=== PATIENT | female | born 1985 | race Caucasian/White ===

== ENCOUNTER 2021-03-26 08:38 | Inpatient (IN) ==
[2021-03-26] MEDS ORDERED: IOPAMIDOL 100 ML BOTTLE IV ONE (08:39)
[2021-03-26] MEDS ORDERED: LACTATED RINGERS 1,000 ML IV ONE ×2 (09:20→10:53)
[2021-03-26] MEDS ORDERED: KETOROLAC 30 MG/ML VIAL IV ONE (09:20)
[2021-03-26] MEDS ORDERED: ONDANSETRON 4 MG/2 ML VIAL IV ONE ×2 (09:20→10:45)
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
[2021-03-26] MEDS ORDERED: morphine 4 MG/ML VIAL IV ONE ×3 (09:57→12:35)
[2021-03-26 10:13] LABS: Basophils # (Auto) 0.07 K/mcL (0.00-0.20); Basophils % (Auto) 0.6 % (0.0-2.0); Eosinophils # (Auto) 0.49 K/mcL (0.00-0.70); Eosinophils % (Auto) 4.3 % (0.0-7.0); Hematocrit 45.2 % (36.0-48.0); Hemoglobin 16.2 g/dL (12.0-15.0); Lymphocytes # (Auto) 3.19 K/mcL (1.50-4.80); Mean Cell Volume 99.3 fL (80.0-100.0); Mean Corpuscular HGB Conc 35.8 g/dL (31.0-36.0); Mean Platelet Volume 9.9 fL (7.4-10.4); Monocytes # (Auto) 0.86 K/mcL (0.10-0.90); Monocytes % (Auto) 7.6 % (1.0-12.0); Neutrophils % (Auto) 59.5 % (38.0-78.0); Platelet Count 267 K/mcL (140-440); RBC 4.55 M/mcL (4.00-5.20); Red Cell Distribution Width 12.6 % (11.5-14.5); WBC 11.4 K/mcL (4.5-11.0)
[2021-03-26 10:35] LABS: ALT/SGPT 98 U/L (<40); AST/SGOT 126 U/L (<32); Albumin 4.1 gm/dL (3.2-5.2); Albumin/Globulin Ratio 1.3 (1.0-2.3); Alkaline Phosphatase 157 U/L (39-117); Bilirubin,Total 0.5 mg/dL (0.1-1.0); Blood Urea Nitrogen 4 mg/dL (6-20); Calcium 8.7 mg/dL (8.6-10.4); Carbon Dioxide 20 mmol/L (22-30); Chloride 94 mmol/L (96-108); Globulin 3.1 gm/dL (2.2-3.7); Glomerular Filtration Rate 126; Glucose 167 mg/dL (70-105)
[2021-03-26] MEDS ORDERED: ONDANSETRON 4 MG/2 ML VIAL ONE (10:51)
[2021-03-26 11:20] LABS: Triglycerides 233 mg/dL (<150)
[2021-03-26] MEDS ORDERED: morphine 10 MG/ML VIAL IV ONE (11:26)
--- NOTE | 2021-03-26 11:45 | Ultrasound Report ---
INDICATION: cholecystitis TECHNIQUE: Grayscale and color flow Doppler spectral imaging COMPARISON: None. FINDINGS: Gallbladder:Negative. No cholelithiasis. No gallbladder wall thickening or pericholecystic fluid Common bile duct:No intra or extrahepatic bile duct dilatation.. Common bile duct measuresor millimeters Liver:Liver is enlarged and echogenic. Liver attenuates sound relative to the right kidney consistent with hepatic steatosis. No focal hepatic mass.. Liver [id number] cm Portal vein:Normal hepatopedal portal venous flow Pancreas:Pancreas appears echogenic. No detectable mass Right kidney:No solid or cystic mass. No hydronephrosis. Right kidney [id number] x 4.5 x 4.1 cm IMPRESSION: 1. Negative gallbladder 2. Findings consistent with hepatic steatosis Interpreted and Authenticated by: Emil Gomes 03/26/21
--- NOTE | 2021-03-26 12:53 | Cat Scan Report ---
INDICATION: pancreatitis COMPARISON: None. TECHNIQUE: Axial images were obtained through the abdomen and pelvis. Sagittally and coronally reformatted images. 80 mL Isovue 370 injected intravenously. Oral contrast material was given FINDINGS: Lung bases:Negative. No pulmonary parenchymal nodule. No pleural fluid or pericardial fluid Liver:Markedly low density liver consistent with hepatic steatosis. There is no focal mass. Liver is mildly enlarged and measures 20 cm in craniocaudal dimension. Gallbladder, bilary:No calcified gallstones. No gallbladder wall thickening. No dilated intra or extrahepatic bile ducts. Spleen:No splenomegaly. Normal enhancement of splenic and portal veins. Pancreas:Pancreas is somewhat enlarged and edematous. There is peripancreatic inflammatory change and fluid. Appearance is consistent with acute interstitial edematous pancreatitis. Pancreas is well perfused without evidence for pancreatic necrosis. No pancreatic abscess. There is peripancreatic inflammatory change and fluid. No contained fluid. No pseudocyst. Fluid dissection down the anterior pararenal space bilaterally. There is free fluid within the pelvis. Adrenal glands:Negative Kidneys, ureters, bladder:No solid renal mass. No hydronephrosis. No obstructing calculi. There is no hydroureter. No ureteral stone No bladder calculi or detectable mass Gastrointestinal: Colon appears diffusely abnormal. There is mucosal enhancement and mild wall thickening. There is minimal pericolonic infiltration of fat. There is also submucosal fat. Findings suggest possible inflammatory bowel disease. Infectious colitis is possible. There is no colonic mass. No diverticulitis. Small bowel is negative. No mechanical small bowel obstruction Stomach and duodenum are unremarkable Appendix: The appendix is not visualized Vascular:Negative abdominal aorta. Superior mesenteric artery and celiac trunk are normal. Normal opacification of the inferior mesenteric artery Lymphatic:No retroperitoneal or mesenteric adenopathy Mesentery, peritoneum: There is free fluid within the pelvis. No intra-abdominal abscess. No pneumoperitoneum Reproductive:Uterus is not visualized consistent with hysterectomy. No adnexal mass Musculoskeletal:No lumbar compression fractures. Sacrum and pelvis are negative. No hip fracture. No abdominal wall or inguinal hernia IMPRESSION: 1. Acute interstitial edematous pancreatitis. No evidence of pancreatic abscess or necrosis 2. Peripancreatic inflammatory change and fluid. No contained fluid no pseudocyst 3. Free fluid within the pelvis 4. : Appears abnormal consistent with colitis. This may be infectious or related to inflammatory bowel disease. The exam was performed using radiation dose optimization techniques including, but not limited to, automated exposure control, adjustment of the mA and/or kV according to patient size and use of iterative reconstruction technique. Interpreted and Authenticated by: Emil Gomes 03/26/21
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
[2021-03-26] MEDS ORDERED: MELATONIN 3 MG TABLET PO PRN (14:07)
[2021-03-26] MEDS ORDERED: 0.9 % SODIUM CHLORIDE 1,000 ML IV SCH (14:07)
[2021-03-26] MEDS ORDERED: MAGNESIUM SULFATE 2 GM/50 ML BAG IV PRN (14:07)
[2021-03-26] MEDS ORDERED: ACETAMINOPHEN 325 MG TABLET PO PRN (14:07)
[2021-03-26] MEDS ORDERED: BISACODYL 10 MG SUPP.RECT PR PRN (14:07)
[2021-03-26] MEDS ORDERED: POLYETHYLENE GLYCOL 3350 17 GM PACKET PO PRN (14:07)
[2021-03-26] MEDS ORDERED: guaiFENesin/CODEINE 10 ML UDC PO PRN (14:07)
[2021-03-26] MEDS ORDERED: POTASSIUM CHLORIDE 40 MEQ in DEXTROSE 5% IN WATER 500 ML IV PRN (14:07)
[2021-03-26] MEDS ORDERED: ONDANSETRON 4 MG ODT TABLET SL PRN (14:07)
[2021-03-26] MEDS ORDERED: ACETAMINOPHEN 650 MG/65 ML BAG IV PRN (14:07)
[2021-03-26] MEDS: 0.9 % SODIUM CHLORIDE 10 ML SYRINGE IV SCH ×2 (14:17→21:16)
[2021-03-26] MEDS: HYDROmorphone 0.5 MG/0.5 ML SYRINGE IV PRN ×8 (14:18→22:50)
[2021-03-26] MEDS: ONDANSETRON 4 MG/2 ML VIAL IV PRN ×2 (14:39→19:14)
[2021-03-26] MEDS ORDERED: HYDROmorphone 1 MG/ML SYRINGE IV ONE (15:41)
[2021-03-26] MEDS: 0.9 % SODIUM CHLORIDE 1,000 ML IV SCH ×2 (16:14→21:27)
[2021-03-26] MEDS: PROMETHAZINE 25 MG/ML VIAL IV PRN (17:16)
[2021-03-26] MEDS ORDERED: HYDROmorphone PCA 30 MG/30 ML PCA.VIAL IV PRN (17:25)
[2021-03-26] MEDS ORDERED: HYDROmorphone 0.5 MG/0.5 ML SYRINGE ONE (19:10)
[2021-03-26] MEDS ORDERED: SENNOSIDES/DOCUSATE SODIUM 1 TAB TABLET PO SCH (21:00)
[2021-03-26] MEDS: HEPARIN 5,000 UNIT/ML VIAL SQ SCH (21:15)
[2021-03-26] MEDS: DOCUSATE SODIUM 100 MG CAPSULE PO SCH (21:17)
[2021-03-26] MEDS: LORazepam 2 MG/ML VIAL IV PRN (21:51)
[2021-03-27] MEDS: PROMETHAZINE 25 MG/ML VIAL IV PRN (00:32)
[2021-03-27] MEDS: HYDROmorphone 0.5 MG/0.5 ML SYRINGE IV PRN ×6 (00:33→06:34)
[2021-03-27] MEDS: 0.9 % SODIUM CHLORIDE 1,000 ML IV SCH ×6 (02:37→18:57)
[2021-03-27] MEDS: ONDANSETRON 4 MG/2 ML VIAL IV PRN (04:04)
[2021-03-27] MEDS: 0.9 % SODIUM CHLORIDE 10 ML SYRINGE IV SCH ×3 (04:05→23:33)
[2021-03-27] MEDS: LORazepam 2 MG/ML VIAL IV PRN (06:35)
[2021-03-27 08:22] LABS: Basophils # (Auto) 0.05 K/mcL (0.00-0.20); Basophils % (Auto) 0.3 % (0.0-2.0); Eosinophils # (Auto) 0.05 K/mcL (0.00-0.70); Eosinophils % (Auto) 0.3 % (0.0-7.0); Hematocrit 49.7 % (36.0-48.0); Hemoglobin 16.4 g/dL (12.0-15.0); Lymphocytes # (Auto) 1.33 K/mcL (1.50-4.80); Lymphocytes % (Auto) 6.7 % (15.0-49.0); Mean Cell Volume 105.3 fL (80.0-100.0); Monocytes # (Auto) 0.87 K/mcL (0.10-0.90); Monocytes % (Auto) 4.4 % (1.0-12.0); Neutrophils % (Auto) 88.3 % (38.0-78.0); Platelet Count 211 K/mcL (140-440); RBC 4.72 M/mcL (4.00-5.20); Red Cell Distribution Width 13.4 % (11.5-14.5); WBC 19.9 K/mcL (4.5-11.0)
[2021-03-27 08:24] LABS: ALT/SGPT 62 U/L (<40); AST/SGOT 67 U/L (<32); Albumin 3.2 gm/dL (3.2-5.2); Albumin/Globulin Ratio 1.2 (1.0-2.3); Alkaline Phosphatase 117 U/L (39-117); Bilirubin,Direct 0.5 mg/dL (<0.3); Bilirubin,Total 0.8 mg/dL (0.1-1.0); Blood Urea Nitrogen 7 mg/dL (6-20); Calcium 7.3 mg/dL (8.6-10.4); Carbon Dioxide 22 mmol/L (22-30); Chloride 107 mmol/L (96-108); Globulin 2.6 gm/dL (2.2-3.7); Glomerular Filtration Rate 118; Glucose 103 mg/dL (70-105); Lactate Dehydrogenase 257 U/L (135-225); Triglycerides 145 mg/dL (<150); Uric Acid 4.4 mg/dL (2.5-8.0)
[2021-03-27] MEDS: 0.9 % SODIUM CHLORIDE 250 ML IV SCH ×2 (08:45→23:32)
[2021-03-27] MEDS ORDERED: ACETAMINOPHEN 325 MG TABLET PO PRN (09:21)
[2021-03-27] MEDS ORDERED: PROMETHAZINE 25 MG/ML VIAL IV PRN (09:21)
[2021-03-27] MEDS ORDERED: guaiFENesin/CODEINE 10 ML UDC PO PRN (09:21)
[2021-03-27] MEDS ORDERED: LORazepam 2 MG/ML VIAL IV PRN (09:21)
[2021-03-27] MEDS ORDERED: BISACODYL 10 MG SUPP.RECT PR PRN (09:21)
[2021-03-27] MEDS ORDERED: HYDROmorphone PCA 30 MG/30 ML PCA.VIAL IV PRN (09:21)
[2021-03-27] MEDS ORDERED: MELATONIN 3 MG TABLET PO PRN (09:21)
[2021-03-27] MEDS ORDERED: POLYETHYLENE GLYCOL 3350 17 GM PACKET PO PRN (09:21)
[2021-03-27] MEDS ORDERED: ONDANSETRON 4 MG ODT TABLET SL PRN (09:21)
[2021-03-27] MEDS ORDERED: HYDROmorphone 0.5 MG/0.5 ML SYRINGE IV PRN (09:21)
[2021-03-27] MEDS ORDERED: ACETAMINOPHEN 650 MG/65 ML BAG IV PRN (09:21)
[2021-03-27] MEDS: MAGNESIUM SULFATE 2 GM/50 ML BAG IV PRN (09:59)
[2021-03-27] MEDS: HEPARIN 5,000 UNIT/ML VIAL SQ SCH ×3 (10:17→21:13)
--- NOTE | 2021-03-27 10:49 | Internal Med Progress Note ---
SUBJECTIVE Subjective Patient information: Note initiated : 03/27/21 at 10:39 am Service Date, if different from initiated Date: [] Patient: Noemi Knight a 35 y/o F admitted on 03/26/21 for bilateral flank pain. Chief Complaint: [] Interval history: History of present illness: Ms. Knight is a 35 year old F with a history of alcoholism who presents to the ER with upper abdominal pain worsening over the last 5 days. H/o excessive ETOH. Associated nausea and vomiting. No fever, jaundice or chills. Symptoms progressed from initially 3 out of 10 pain to 10 out of 10 over the course of 5 days. Patient lives with her son and father. She was brought in by family to the ER for evaluation. Initial work-up in the ER was consistent with severe pancreatitis on abdominal imaging. Elevated lipase, white count, low [place] score on presentation. Hospital service was consulted At the time of my evaluation patient is very anxious and distressed rating pain 8 out of 10 despite Dilaudid. She denies prior similar episodes, No flank pain, bluish discoloration. Denies NSAIDS. 03/27- Patient clinically worse with increasing pain, tachypnea, tachycardia, abd distention, poorly controlled pain on SPORTS PHYSICIAN dilaudid. Elevated CRP, distended and Tender abdomen, repeat CT abd in 24 hrs to r/o hemorrhage and necrosis. Ileus noted on exam, continue crystalloids. WBC worsening at 19.9, K 3.5, MAg 1.3, CRP 10. Transfer to PCU Constitutional Vitals: Vital Signs Temp Pulse Resp BP Pulse Ox 98.6 F 125 H 18 139/104 95 03/27/21 07:00 03/27/21 10:30 03/27/21 10:30 03/27/21 10:30 03/27/21 10:30 Period Temp Pulse Resp BP Sys/Ken Pulse Ox Last 24 Hr 97.2 F-98.6 F 81-149 15-25 133-185/95-122 84-98 Intake and Output 03/26/21 03/27/21 03/27/21 21:59 05:59 13:59 Intake Total 2585 1000 1400 Output Total 100 175 50 Balance 2485 825 1350 Weight 131.633 kg clinically deteriorating. Anxious Worsening abd pain and distention tachycardia no lymphedema. No flank discoloration Intake & Output: Intake & Output 03/26/21 03/27/21 03/27/21 21:59 05:59 13:59 Intake Total 2585 1000 1400 Output Total 100 175 50 Balance 2485 825 1350 Weight 131.633 kg Intake: IV 2585 1000 1400 Sodium Chloride 0.9% 1,000 ml @ 2000 1000 1400 200 mls/hr IV .Q5H RUBÉN Rx#: [id number] Potassium Chloride 40 Meq In 520 Dextrose 5% in Water 500 ml @ 130 mls/hr IV UD PRN Rx#: [id number] Oral 0 Output: Void Amount 175 50 Emesis 100 Other: Urine Appearance Clear Cloudy Sediment Urine Color Dark Yellow Ocate Ocate Urine Odor Normal # Voids 1 OBJ DATA Labs CBC & Chem 7: 03/27/21 05:24 03/27/21 05:24 Labs: Abnormal Lab Results 03/27/21 03/27/21 03/27/21 05:24 05:24 05:24 WBC 19.9 H Hgb 16.4 H Hct 49.7 H MCV 105.3 H MCH 34.7 H Neut % (Auto) 88.3 H Lymph % (Auto) 6.7 L Lymph # (Auto) 1.33 L Absolute Neutrophils 17.63 H Sodium Potassium Chloride Carbon Dioxide Anion Gap BUN Creatinine Glucose Calcium 7.3 L Magnesium 1.3 L 1.5 L Direct Bilirubin 0.5 H GGT 255 H AST 67 H ALT 62 H Alkaline Phosphatase Lactate Dehydrogenase 257 H C-Reactive Protein 10.00 H Total Protein 5.8 L Triglycerides Lipase 03/26/21 03/26/21 03/26/21 09:37 09:37 09:37 WBC Hgb Hct MCV MCH Neut % (Auto) Lymph % (Auto) Lymph # (Auto) Absolute Neutrophils Sodium 132 L Potassium 3.1 L Chloride 94 L Carbon Dioxide 20 L Anion Gap 18.0 H BUN 4 L Creatinine 0.5 L Glucose 167 H Calcium Magnesium Direct Bilirubin GGT AST 126 H ALT 98 H Alkaline Phosphatase 157 H Lactate Dehydrogenase C-Reactive Protein 1.10 H Total Protein Triglycerides 233 H Lipase 687 H 03/26/21 09:37 WBC 11.4 H Hgb 16.2 H Hct MCV MCH 35.6 H Neut % (Auto) Lymph % (Auto) Lymph # (Auto) Absolute Neutrophils Sodium Potassium Chloride Carbon Dioxide Anion Gap BUN Creatinine Glucose Calcium Magnesium Direct Bilirubin GGT AST ALT Alkaline Phosphatase Lactate Dehydrogenase C-Reactive Protein Total Protein Triglycerides Lipase Meds: Medications Acetaminophen (Acetaminophen 325 Mg Tablet) 650 mg PO Q4-6HP PRN; Protocol PRN Reason: Per Pain Protocol/Fever > 101 Bisacodyl (Bisacodyl 10 Mg Supp.Rect) 10 mg RI Q2-3DAYS PRN PRN Reason: Constipation Docusate Sodium (Docusate Sodium 100 Mg Capsule) 100 mg PO BID [facility] Guaifenesin/Codeine Phosphate (Guaifenesin/Codeine 10 Ml Udc) 10 ml PO Q4HP PRN PRN Reason: Cough Heparin Sodium (Porcine) (Heparin 5,000 Unit/Ml Vial) 5,000 unit SQ Q12 [facility] Last Admin: 03/27/21 10:17 Dose: 5,000 unit Documented by: Hydromorphone HCl (Hydromorphone Filtration Plant Operator 30 Mg/30 Ml Filtration Plant Operator.Vial) 30 mg IV UD PRN; Protocol PRN Reason: Pain Hydromorphone HCl (Hydromorphone 0.5 Mg/0.5 Ml Syringe) 0.25 - 0.5 mg IV Q15M PRN; Protocol PRN Reason: Per Pain Protocol Sodium Chloride (Sodium Chloride 0.9%) 250 mls @ 20 mls/hr IV .[id number] [facility] Last Admin: 03/27/21 08:45 Dose: 20 mls/hr Documented by: Sodium Chloride (Sodium Chloride 0.9%) 1,000 mls @ 200 mls/hr IV .Q5H [facility] Last Admin: 03/27/21 09:26 Dose: Not Given Documented by: Sodium Chloride (Sodium Chloride 0.9%) 1,000 mls @ 0 mls/hr IV BOLUS [facility] Last Admin: 03/27/21 10:04 Dose: 999 mls/hr Documented by: Acetaminophen (Ofirmev) 650 mg in 65 mls @ 130 mls/hr IV Q6HP PRN; Protocol PRN Reason: Per Pain Protocol/Fever > 101 Magnesium Sulfate (Magnesium Sulfate) 2 gm in 50 mls @ 50 mls/hr IV UD PRN PRN Reason: MG = or < 1.7 Last Admin: 03/27/21 09:59 Dose: 50 mls/hr Documented by: Potassium Chloride 40 meq/ (Dextrose) 520 mls @ 130 mls/hr IV UD PRN PRN Reason: K+ = or < 3.5 Lorazepam (Lorazepam 2 Mg/Ml Vial) 0.5 mg IV Q4-6HP PRN PRN Reason: ANXIETY/SEDATION Melatonin (Melatonin 3 Mg Tablet) 3 mg PO HSP PRN PRN Reason: Insomnia Ondansetron HCl (Ondansetron 4 Mg Odt Tablet) 4 mg SL Q4-6HP PRN; Protocol PRN Reason: Nausea And Vomiting Ondansetron HCl (Ondansetron 4 Mg/2 Ml Vial) 4 mg IV Q4-6HP PRN; Protocol PRN Reason: Nausea And Vomiting Polyethylene Glycol (Polyethylene Glycol 3350 17 Gm Packet) 17 gm PO DAILYP PRN PRN Reason: Constipation Promethazine HCl (Promethazine 25 Mg/Ml Vial) 6.25 mg IV Q4-6HP PRN; Protocol PRN Reason: Nausea And Vomiting Senna/Docusate Sodium (Sennosides/Docusate Sodium 1 Tab Tablet) 1 tab PO HS RUBÉN Sodium Chloride (0.9 % Sodium Chloride 10 Ml Syringe) 10 ml IV Q8 RUBÉN A/P Narrative A/P Narrative: * Acute pancreatitis with systemic inflammatory response syndrome without evidence of hemorrhage or necrosis on CT. worsening inflammatory markers/white count over 19 K/tachycardia/tachypnea and clinical deterioration. Continue supportive treatment, Worsening [place] 2 score. Transfer to PCU * Acute hypoxic respiratory failure secondary to severe pancreatitis. Interval imaging. High probability development of AMI/ARDS secondary to pancreatitis. Continue supplemental oxygen. * Colitis, Normal ESr,CRP on presentation unlikely IBD * Hypokalemia improved with replacement * Ileus- secondary to pancreatitis * Abdominal pain Dilaudid SPORTS PHYSICIAN * Anxiety disorder continue clonazepam/sertraline * Prophylaxis Heparin Plan * Continue supportive treatment including crystalloid/bowel rest/antiemetics and analgesics * Keep n.p.o. * Transfer to PCU * Dilaudid SPORTS PHYSICIAN * CT abd chest in AM * Serial CRP/ESR * Transfer to tertiary center if evidence of pancreatic hemorrhage Time Spent With Patient Time: Critical care time in excess of 35 minutes on management of QUALITY VTE Deep Vein Thrombosis/Pulmonary Embolism Present on Admission: No
[2021-03-27] MEDS: POTASSIUM CHLORIDE 40 MEQ in DEXTROSE 5% IN WATER 500 ML IV PRN (10:57)
[2021-03-27] MEDS: DOCUSATE SODIUM 100 MG CAPSULE PO SCH ×2 (11:07→19:52)
[2021-03-27] MEDS: SENNOSIDES/DOCUSATE SODIUM 1 TAB TABLET PO SCH (19:52)
[2021-03-28] MEDS: 0.9 % SODIUM CHLORIDE 1,000 ML IV SCH ×6 (00:42→20:55)
[2021-03-28] MEDS: 0.9 % SODIUM CHLORIDE 10 ML SYRINGE IV SCH ×3 (05:59→21:39)
[2021-03-28 06:46] LABS: Basophils # (Auto) 0.06 K/mcL (0.00-0.20); Basophils % (Auto) 0.3 % (0.0-2.0); Eosinophils # (Auto) 0.22 K/mcL (0.00-0.70); Eosinophils % (Auto) 0.9 % (0.0-7.0); Hematocrit 43.7 % (36.0-48.0); Hemoglobin 14.4 g/dL (12.0-15.0); Lymphocytes # (Auto) 1.86 K/mcL (1.50-4.80); Lymphocytes % (Auto) 7.9 % (15.0-49.0); Mean Cell Volume 106.8 fL (80.0-100.0); Mean Platelet Volume 10.4 fL (7.4-10.4); Monocytes # (Auto) 1.12 K/mcL (0.10-0.90); Monocytes % (Auto) 4.8 % (1.0-12.0); Neutrophils % (Auto) 86.1 % (38.0-78.0); Platelet Count 175 K/mcL (140-440); RBC 4.09 M/mcL (4.00-5.20); Red Cell Distribution Width 13.7 % (11.5-14.5); WBC 23.6 K/mcL (4.5-11.0)
[2021-03-28 07:55] LABS: ALT/SGPT 34 U/L (<40); AST/SGOT 34 U/L (<32); Albumin 2.5 gm/dL (3.2-5.2); Alkaline Phosphatase 96 U/L (39-117); Bilirubin,Direct 0.6 mg/dL (<0.3); Bilirubin,Total 0.8 mg/dL (0.1-1.0); Blood Urea Nitrogen 5 mg/dL (6-20); Calcium 6.9 mg/dL (8.6-10.4); Carbon Dioxide 19 mmol/L (22-30); Chloride 105 mmol/L (96-108); Globulin 2.5 gm/dL (2.2-3.7); Glomerular Filtration Rate 135; Glucose 73 mg/dL (70-105); Lactate Dehydrogenase 263 U/L (135-225); Phosphorous 1.4 mg/dL (2.5-4.5); Triglycerides 154 mg/dL (<150); Uric Acid 3.5 mg/dL (2.5-8.0)
[2021-03-28] MEDS: MAGNESIUM SULFATE 2 GM/50 ML BAG IV PRN (09:33)
[2021-03-28] MEDS: DOCUSATE SODIUM 100 MG CAPSULE PO SCH ×2 (10:35→21:39)
[2021-03-28] MEDS: HEPARIN 5,000 UNIT/ML VIAL SQ SCH ×2 (10:35→21:46)
[2021-03-28] MEDS: POTASSIUM CHLORIDE 40 MEQ in DEXTROSE 5% IN WATER 500 ML IV PRN (11:18)
[2021-03-28] MEDS: 0.9 % SODIUM CHLORIDE 250 ML IV SCH (11:24)
--- NOTE | 2021-03-28 12:35 | Internal Med Progress Note ---
SUBJECTIVE Subjective Patient information: Note initiated : 03/28/21 at 12:32 pm Service Date, if different from initiated Date: [] Patient: Noemi Knight 35 y/o F admitted on 03/26/21 for bilateral flank pain. Chief Complaint: [] Interval history: History of present illness: Ms. Knight is a 35 year old F with a history of alcoholism who presents to the ER with upper abdominal pain worsening over the last 5 days. H/o excessive ETOH. Associated nausea and vomiting. No fever, jaundice or chills. Symptoms progressed from initially 3 out of 10 pain to 10 out of 10 over the course of 5 days. Patient lives with her son and father. She was brought in by family to the ER for evaluation. Initial work-up in the ER was consistent with severe pancreatitis on abdominal imaging. Elevated lipase, white count, low [place] score on presentation. Hospital service was consulted At the time of my evaluation patient is very anxious and distressed rating pain 8 out of 10 despite Dilaudid. She denies prior similar episodes, No flank pain, bluish discoloration. Denies NSAIDS. 03/27- Patient clinically worse with increasing pain, tachypnea, tachycardia, abd distention, poorly controlled pain on SENIOR ECONOMIST dilaudid. Elevated CRP, distended and Tender abdomen, repeat CT abd in 24 hrs to r/o hemorrhage and necrosis. Ileus noted on exam, continue crystalloids. WBC worsening at 19.9, K 3.5, MAg 1.3, CRP 10. Transfer to PCU 03/28-patient showing gradual improvement. Elevated inflammatory markers. Continue NPO. Crystalloids. Renal function stable. White count 23. Persistent ileus. Third spacing fluids with edema noted. Very anxious. On SENIOR ECONOMIST Dilaudid. Continue existing treatment. Constitutional Vitals: Vital Signs Temp Pulse Resp BP Pulse Ox 97.9 F 107 H 18 143/101 90 03/28/21 12:00 03/28/21 12:12 03/28/21 12:00 03/28/21 12:00 03/28/21 12:12 Period Temp Pulse Resp BP Sys/Ken Pulse Ox Last 24 Hr 97.1 F-98.8 F 96-129 14-26 133-165/95-119 90-98 Intake and Output 03/27/21 03/28/21 03/28/21 21:59 05:59 13:59 Intake Total 2189 1999 1207 Output Total 125 250 375 Balance 5 1750 832 Weight 86.409 kg alert oriented Nonlabored breathing Minimal lymphedema Distended tender abdomen Intake & Output: Intake & Output 03/27/21 03/28/21 03/28/21 21:59 05:59 13:59 Intake Total 2189 1999 1207 Output Total 125 250 375 Balance 2064 1750 832 Weight 86.409 kg Intake: IV 1770 1999 1207 Sodium Chloride 0.9% 1,000 ml @ 1000 2000 970 200 mls/hr IV .Q5H RUBÉN Rx#: [id number] Sodium Chloride 0.9% 250 ml @ 250 237 20 mls/hr IV .[id number] RUBÉN Rx#: [id number] Potassium Chloride 40 Meq In 520 Dextrose 5% in Water 500 ml @ 130 mls/hr IV UD PRN Rx#: [id number] Oral 420 Output: Void Amount 125 250 375 Other: Urine Appearance Clear Clear Clear Urine Color [place] Niwot [place]ot Urine Odor Normal Normal OBJ DATA Labs CBC & Chem 7: 03/28/21 05:05 03/28/21 05:05 Labs: Abnormal Lab Results 03/28/21 03/28/21 03/28/21 05:05 05:05 05:05 WBC 23.6 H Hgb Hct MCV 106.8 H MCH 35.2 H Neut % (Auto) 86.1 H Lymph % (Auto) 7.9 L Lymph # (Auto) [place] # (Auto) 1.12 H Absolute Neutrophils 20.30 H Sodium Potassium Chloride Carbon Dioxide 19 L Anion Gap BUN 5 L Creatinine 0.4 L Glucose Calcium 6.9 L Phosphorus 1.4 L Magnesium Direct Bilirubin 0.6 H GGT 169 H AST 34 H ALT Alkaline Phosphatase Lactate Dehydrogenase 263 H C-Reactive Protein 25.00 H Total Protein 5.0 L Albumin 2.5 L Triglycerides 154 H Lipase 03/27/21 03/27/21 03/27/21 05:24 05:24 05:24 WBC 19.9 H Hgb 16.4 H Hct 49.7 H MCV 105.3 H MCH 34.7 H Neut % (Auto) 88.3 H Lymph % (Auto) 6.7 L Lymph # (Auto) 1.33 L [place] # (Auto) Absolute Neutrophils 17.63 H Sodium Potassium Chloride Carbon Dioxide Anion Gap BUN Creatinine Glucose Calcium 7.3 L Phosphorus Magnesium 1.3 L 1.5 L Direct Bilirubin 0.5 H GGT 255 H AST 67 H ALT 62 H Alkaline Phosphatase Lactate Dehydrogenase 257 H C-Reactive Protein 10.00 H Total Protein 5.8 L Albumin Triglycerides Lipase 03/26/21 03/26/21 03/26/21 09:37 09:37 09:37 WBC Hgb Hct MCV MCH Neut % (Auto) Lymph % (Auto) Lymph # (Auto) [place] # (Auto) Absolute Neutrophils Sodium 132 L Potassium 3.1 L Chloride 94 L Carbon Dioxide 20 L Anion Gap 18.0 H BUN 4 L Creatinine 0.5 L Glucose 167 H Calcium Phosphorus Magnesium Direct Bilirubin GGT AST 126 H ALT 98 H Alkaline Phosphatase 157 H Lactate Dehydrogenase C-Reactive Protein 1.10 H Total Protein Albumin Triglycerides 233 H Lipase 687 H 03/26/21 09:37 WBC 11.4 H Hgb 16.2 H Hct MCV MCH 35.6 H Neut % (Auto) Lymph % (Auto) Lymph # (Auto) [place] # (Auto) Absolute Neutrophils Sodium Potassium Chloride Carbon Dioxide Anion Gap BUN Creatinine Glucose Calcium Phosphorus Magnesium Direct Bilirubin GGT AST ALT Alkaline Phosphatase Lactate Dehydrogenase C-Reactive Protein Total Protein Albumin Triglycerides Lipase Meds: Medications Acetaminophen (Acetaminophen 325 Mg Tablet) 650 mg PO Q4-6HP PRN; Protocol PRN Reason: Per Pain Protocol/Fever > 101 Bisacodyl (Bisacodyl 10 Mg Supp.Rect) [address] Q2-3DAYS PRN PRN Reason: Constipation Docusate Sodium (Docusate Sodium 100 Mg Capsule) 100 mg PO BID [facility] Last Admin: 03/28/21 10:35 Dose: Not Given Documented by: Guaifenesin/Codeine Phosphate (Guaifenesin/Codeine 10 Ml Udc) 10 ml PO Q4HP PRN PRN Reason: Cough Heparin Sodium (Porcine) (Heparin 5,000 Unit/Ml Vial) 5,000 unit SQ Q12 [facility] Last Admin: 03/28/21 10:35 Dose: 5,000 unit Documented by: Hydromorphone HCl (Hydromorphone Hydroelectric Machinery Mechanic Helper 30 Mg/30 Ml Hydroelectric Machinery Mechanic Helper.Vial) 30 mg IV UD PRN; Protocol PRN Reason: Pain Hydromorphone HCl (Hydromorphone 0.5 Mg/0.5 Ml Syringe) 0.25 - 0.5 mg IV Q15M PRN; Protocol PRN Reason: Per Pain Protocol Sodium Chloride (Sodium Chloride 0.9%) 250 mls @ 20 mls/hr IV .[id number] [facility] Last Admin: 03/28/21 11:24 Dose: 20 mls/hr Documented by: Acetaminophen (Ofirmev) 650 mg in 65 mls @ 130 mls/hr IV Q6HP PRN; Protocol PRN Reason: Per Pain Protocol/Fever > 101 Magnesium Sulfate (Magnesium Sulfate) 2 gm in 50 mls @ 50 mls/hr IV UD PRN PRN Reason: MG = or < 1.7 Last Admin: 03/28/21 09:33 Dose: 50 mls/hr Documented by: Potassium Chloride 40 meq/ (Dextrose) 520 mls @ 130 mls/hr IV UD PRN PRN Reason: K+ = or < 3.5 Last Admin: 03/28/21 11:18 Dose: 130 mls/hr Documented by: Sodium Chloride (Sodium Chloride 0.9%) 1,000 mls @ 100 mls/hr IV .Q10H [facility] Last Admin: 03/28/21 10:51 Dose: 100 mls/hr Documented by: Lorazepam (Lorazepam 2 Mg/Ml Vial) 0.5 mg IV Q4-6HP PRN PRN Reason: ANXIETY/SEDATION Melatonin (Melatonin 3 Mg Tablet) 3 mg PO HSP PRN PRN Reason: Insomnia Ondansetron HCl (Ondansetron 4 Mg Odt Tablet) 4 mg SL Q4-6HP PRN; Protocol PRN Reason: Nausea And Vomiting Ondansetron HCl (Ondansetron 4 Mg/2 Ml Vial) 4 mg IV Q4-6HP PRN; Protocol PRN Reason: Nausea And Vomiting Polyethylene Glycol (Polyethylene Glycol 3350 17 Gm Packet) 17 gm PO DAILYP PRN PRN Reason: Constipation Promethazine HCl (Promethazine 25 Mg/Ml Vial) 6.25 mg IV Q4-6HP PRN; Protocol PRN Reason: Nausea And Vomiting Senna/Docusate Sodium (Sennosides/Docusate Sodium 1 Tab Tablet) 1 tab PO HS [facility] Last Admin: 03/27/21 19:52 Dose: Not Given Documented by: Sodium Chloride (0.9 % Sodium Chloride 10 Ml Syringe) 10 ml IV Q8 [facility] Last Admin: 03/28/21 05:59 Dose: 10 ml Documented by: A/P Narrative A/P Narrative: * Acute pancreatitis with systemic inflammatory response syndrome without evide nce of hemorrhage or necrosis on CT. gradual clinical improvement noted however worsening WBC at 23K /improved tachycardia/tachypnea. Continue supportive treatment, continue PCU care * Acute hypoxic respiratory failure secondary to severe pancreatitis. Clinically improving now on room air * Colitis, Normal ESr,CRP on presentation unlikely IBD * Hypokalemia improved with replacement * Low phosphorus on replacement * Ileus- secondary to pancreatitis * Abdominal pain Dilaudid SENIOR ECONOMIST * Anxiety disorder continue clonazepam/sertraline * Prophylaxis Heparin Plan * Continue supportive treatment including crystalloid/bowel rest/antiemetics and analgesics * Replace electrolytes as indicated * Dilaudid SENIOR ECONOMIST * close hemodynamic monitoring in ICU Time Spent With Patient Time: Total time spent is greater than 50% in coordination of care (as documented) at patient's floor/unit and/or counseling patient: QUALITY VTE Deep Vein Thrombosis/Pulmonary Embolism Present on Admission: No
[2021-03-28] MEDS ORDERED: POTASSIUM PHOSPHATE IV ONE (16:37)
[2021-03-28] MEDS ORDERED: DEXTROSE 5% IV ONE (16:37)
[2021-03-28] MEDS ORDERED: WATER IV ONE (16:37)
[2021-03-28] MEDS: SENNOSIDES/DOCUSATE SODIUM 1 TAB TABLET PO SCH (21:39)
[2021-03-29] MEDS: 0.9 % SODIUM CHLORIDE 250 ML IV SCH ×2 (00:43→11:05)
[2021-03-29] MEDS: 0.9 % SODIUM CHLORIDE 10 ML SYRINGE IV SCH ×3 (05:49→20:01)
[2021-03-29 06:58] LABS: Basophils # (Auto) 0.03 K/mcL (0.00-0.20); Basophils % (Auto) 0.1 % (0.0-2.0); Eosinophils # (Auto) 0.29 K/mcL (0.00-0.70); Eosinophils % (Auto) 1.4 % (0.0-7.0); Hematocrit 38.7 % (36.0-48.0); Lymphocytes # (Auto) 1.49 K/mcL (1.50-4.80); Lymphocytes % (Auto) 7.2 % (15.0-49.0); Mean Cell Volume 105.2 fL (80.0-100.0); Mean Corpuscular HGB Conc 33.6 g/dL (31.0-36.0); Mean Platelet Volume 10.6 fL (7.4-10.4); Monocytes % (Auto) 6.3 % (1.0-12.0); Platelet Count 163 K/mcL (140-440); RBC 3.68 M/mcL (4.00-5.20); Red Cell Distribution Width 13.5 % (11.5-14.5); WBC 20.8 K/mcL (4.5-11.0)
[2021-03-29] MEDS: 0.9 % SODIUM CHLORIDE 1,000 ML IV SCH ×4 (07:00→18:34)
[2021-03-29 07:14] LABS: ALT/SGPT 25 U/L (<40); AST/SGOT 32 U/L (<32); Albumin 2.2 gm/dL (3.2-5.2); Albumin/Globulin Ratio 0.9 (1.0-2.3); Alkaline Phosphatase 90 U/L (39-117); Bilirubin,Direct 0.7 mg/dL (<0.3); Blood Urea Nitrogen 4 mg/dL (6-20); Calcium 7.1 mg/dL (8.6-10.4); Carbon Dioxide 19 mmol/L (22-30); Chloride 98 mmol/L (96-108); Globulin 2.5 gm/dL (2.2-3.7); Glomerular Filtration Rate 135; Glucose 76 mg/dL (70-105); Lactate Dehydrogenase 267 U/L (135-225); Phosphorous 1.8 mg/dL (2.5-4.5); Triglycerides 142 mg/dL (<150)
[2021-03-29] MEDS ORDERED: IOPAMIDOL 100 ML BOTTLE IV ONE (07:51)
[2021-03-29] MEDS: DOCUSATE SODIUM 100 MG CAPSULE PO SCH ×2 (08:01→20:01)
[2021-03-29] MEDS: ONDANSETRON 4 MG/2 ML VIAL IV PRN (08:01)
[2021-03-29] MEDS: HEPARIN 5,000 UNIT/ML VIAL SQ SCH ×2 (08:02→20:00)
[2021-03-29] MEDS ORDERED: HYDROmorphone PCA 30 MG/30 ML PCA.VIAL IV PRN (10:06)
--- NOTE | 2021-03-29 10:45 | Internal Med Progress Note ---
SUBJECTIVE Subjective Patient information: Note initiated : 03/29/21 at 10:42 am Service Date, if different from initiated Date: [] Patient: Noemi Knight a 35 y/o F admitted on 03/26/21 for bilateral flank pain. Chief Complaint: [] Interval history: History of present illness: Ms. Knight is a 35 year old F with a history of alcoholism who presents to the ER with upper abdominal pain worsening over the last 5 days. H/o excessive ETOH. Associated nausea and vomiting. No fever, jaundice or chills. Symptoms progressed from initially 3 out of 10 pain to 10 out of 10 over the course of 5 days. Patient lives with her son and father. She was brought in by family to the ER for evaluation. Initial work-up in the ER was consistent with severe pancreatitis on abdominal imaging. Elevated lipase, white count, low [place] score on presentation. Hospital service was consulted At the time of my evaluation patient is very anxious and distressed rating pain 8 out of 10 despite Dilaudid. She denies prior similar episodes, No flank pain, bluish discoloration. Denies NSAIDS. 03/27- Patient clinically worse with increasing pain, tachypnea, tachycardia, abd distention, poorly controlled pain on REST ROOM MAID dilaudid. Elevated CRP, distended and Tender abdomen, repeat CT abd in 24 hrs to r/o hemorrhage and necrosis. Ileus noted on exam, continue crystalloids. WBC worsening at 19.9, K 3.5, MAg 1.3, CRP 10. Transfer to PCU 03/28-patient showing gradual improvement. Elevated inflammatory markers. Continue NPO. Crystalloids. Renal function stable. White count 23. Persistent ileus. Third spacing fluids with edema noted. Very anxious. On REST ROOM MAID Dilaudid. Continue existing treatment. 03/29-patient clinically improving. White count downtrending, CRP plateaued, improved abdominal pain but persistent nausea. Continuing NPO. Will attempt clear liquid diet in 24 hours if continues to improve clinically. Stabilizing hemodynamics. Urine output marginal. Excessive third spacing. Constitutional Vitals: Vital Signs Temp Pulse Resp BP Pulse Ox 98.2 F 97 H 16 157/97 96 03/29/21 03:47 03/29/21 09:50 03/29/21 04:00 03/29/21 08:00 03/29/21 09:50 Period Temp Pulse Resp BP Sys/Ken Pulse Ox Last 24 Hr 97.4 F-99.5 F 95-112 16-18 136-163/86-113 90-98 Intake and Output 03/28/21 03/29/21 03/29/21 21:59 05:59 13:59 Intake Total 1520 1263.6364 1000 Output Total 375 250 Balance 1145 1013.6364 1000 Weight 97.976 kg alert but anxious Edema lymphedema Abdominal tenderness and distention Nonlabored breathing Intake & Output: Intake & Output 03/28/21 03/29/21 03/29/21 21:59 05:59 13:59 Intake Total 1520 1263.6364 1000 Output Total 375 250 Balance 1145 1013.6364 1000 Weight 97.976 kg Intake: IV 1520 1263.6364 1000 Sodium Chloride 0.9% 1,000 ml @ 1000 1000 100 mls/hr IV .Q10H [facility] Rx#: [id number] Sodium Chloride 0.9% 250 ml @ 250 20 mls/hr IV .[id number] [facility] Rx#: [id number] Potassium Chloride 40 Meq In 520 Dextrose 5% in Water 500 ml @ 130 mls/hr IV UD PRN Rx#: [id number] Potassium Phosphate 60 Meq In 1013.6364 Dextrose 5% in Water 1,000 ml @ 170 mls/hr IV ONCE ONE Rx#: [id number] Oral 0 0 Output: Void Amount 375 250 Other: Urine Appearance Clear Urine Color [place] OBJ DATA Labs CBC & Chem 7: 03/29/21 04:58 03/29/21 04:57 Labs: Abnormal Lab Results 03/29/21 03/29/21 03/29/21 04:58 04:57 04:57 WBC 20.8 H RBC 3.68 L Hgb Hct MCV 105.2 H MCH 35.3 H MPV 10.6 H Neut % (Auto) 85.0 H Lymph % (Auto) 7.2 L Lymph # (Auto) 1.49 L [place] # (Auto) 1.30 H Absolute Neutrophils 17.65 H Sodium 127 L Carbon Dioxide 19 L BUN 4 L Creatinine 0.4 L Calcium 7.1 L Phosphorus 1.8 L Magnesium Direct Bilirubin 0.7 H GGT 137 H AST 32 H ALT Lactate Dehydrogenase 267 H C-Reactive Protein 21.40 H Total Protein 4.7 L Albumin 2.2 L Albumin/Globulin Ratio 0.9 L Triglycerides Lipase 03/28/21 03/28/21 03/28/21 05:05 05:05 05:05 WBC 23.6 H RBC Hgb Hct MCV 106.8 H MCH 35.2 H MPV Neut % (Auto) 86.1 H Lymph % (Auto) 7.9 L Lymph # (Auto) [place] # (Auto) 1.12 H Absolute Neutrophils 20.30 H Sodium Carbon Dioxide 19 L BUN 5 L Creatinine 0.4 L Calcium 6.9 L Phosphorus 1.4 L Magnesium Direct Bilirubin 0.6 H GGT 169 H AST 34 H ALT Lactate Dehydrogenase 263 H C-Reactive Protein 25.00 H Total Protein 5.0 L Albumin 2.5 L Albumin/Globulin Ratio Triglycerides 154 H Lipase 03/27/21 03/27/21 03/27/21 05:24 05:24 05:24 WBC 19.9 H RBC Hgb 16.4 H Hct 49.7 H MCV 105.3 H MCH 34.7 H MPV Neut % (Auto) 88.3 H Lymph % (Auto) 6.7 L Lymph # (Auto) 1.33 L [place] # (Auto) Absolute Neutrophils 17.63 H Sodium Carbon Dioxide BUN Creatinine Calcium 7.3 L Phosphorus Magnesium 1.3 L 1.5 L Direct Bilirubin 0.5 H GGT 255 H AST 67 H ALT 62 H Lactate Dehydrogenase 257 H C-Reactive Protein 10.00 H Total Protein 5.8 L Albumin Albumin/Globulin Ratio Triglycerides Lipase 03/26/21 03/26/21 03/26/21 09:37 09:37 09:37 WBC RBC Hgb Hct MCV MCH MPV Neut % (Auto) Lymph % (Auto) Lymph # (Auto) [place] # (Auto) Absolute Neutrophils Sodium Carbon Dioxide BUN Creatinine Calcium Phosphorus Magnesium Direct Bilirubin GGT AST ALT Lactate Dehydrogenase C-Reactive Protein 1.10 H Total Protein Albumin Albumin/Globulin Ratio Triglycerides 233 H Lipase 687 H Meds: Medications Acetaminophen (Acetaminophen 325 Mg Tablet) 650 mg PO Q4-6HP PRN; Protocol PRN Reason: Per Pain Protocol/Fever > 101 Bisacodyl (Bisacodyl 10 Mg Supp.Rect) 10 mg [place] Q2-3DAYS PRN PRN Reason: Constipation Docusate Sodium (Docusate Sodium 100 Mg Capsule) 100 mg PO BID [facility] Last Admin: 03/29/21 08:01 Dose: Not Given Documented by: Guaifenesin/Codeine Phosphate (Guaifenesin/Codeine 10 Ml Udc) 10 ml PO Q4HP PRN PRN Reason: Cough Heparin Sodium (Porcine) (Heparin 5,000 Unit/Ml Vial) 5,000 unit SQ Q12 [facility] Last Admin: 03/29/21 08:02 Dose: 5,000 unit Documented by: Hydromorphone HCl (Hydromorphone 0.5 Mg/0.5 Ml Syringe) 0.25 - 0.5 mg IV Q15M PRN; Protocol PRN Reason: Per Pain Protocol Hydromorphone HCl (Hydromorphone Editor Magazine 30 Mg/30 Ml Editor Magazine.Vial) 30 mg IV UD PRN; Protocol PRN Reason: Pain Sodium Chloride (Sodium Chloride 0.9%) 250 mls @ 20 mls/hr IV .[id number] [facility] Last Admin: 03/29/21 00:43 Dose: 20 mls/hr Documented by: Acetaminophen (Ofirmev) 650 mg in 65 mls @ 130 mls/hr IV Q6HP PRN; Protocol PRN Reason: Per Pain Protocol/Fever > 101 Magnesium Sulfate (Magnesium Sulfate) 2 gm in 50 mls @ 50 mls/hr IV UD PRN PRN Reason: MG = or < 1.7 Last Infusion: 03/28/21 10:33 Dose: Infused Documented by: Potassium Chloride 40 meq/ (Dextrose) 520 mls @ 130 mls/hr IV UD PRN PRN Reason: K+ = or < 3.5 Last Infusion: 03/28/21 16:12 Dose: Infused Documented by: Sodium Chloride (Sodium Chloride 0.9%) 1,000 mls @ 100 mls/hr IV .Q10H [facility] Last Admin: 03/29/21 08:01 Dose: 100 mls/hr Documented by: Lorazepam (Lorazepam 2 Mg/Ml Vial) 0.5 mg IV Q4-6HP PRN PRN Reason: ANXIETY/SEDATION Last Admin: 03/28/21 21:39 Dose: 0.5 mg Documented by: Melatonin (Melatonin 3 Mg Tablet) 3 mg PO HSP PRN PRN Reason: Insomnia Ondansetron HCl (Ondansetron 4 Mg Odt Tablet) 4 mg SL Q4-6HP PRN; Protocol PRN Reason: Nausea And Vomiting Ondansetron HCl (Ondansetron 4 Mg/2 Ml Vial) 4 mg IV Q4-6HP PRN; Protocol PRN Reason: Nausea And Vomiting Last Admin: 03/29/21 08:01 Dose: 4 mg Documented by: Polyethylene Glycol (Polyethylene Glycol 3350 17 Gm Packet) 17 gm PO DAILYP PRN PRN Reason: Constipation Promethazine HCl (Promethazine 25 Mg/Ml Vial) 6.25 mg IV Q4-6HP PRN; Protocol PRN Reason: Nausea And Vomiting Senna/Docusate Sodium (Sennosides/Docusate Sodium 1 Tab Tablet) 1 tab PO HS [facility] Last Admin: 03/28/21 21:39 Dose: Not Given Documented by: Sodium Chloride (0.9 % Sodium Chloride 10 Ml Syringe) 10 ml IV Q8 [facility] Last Admin: 03/29/21 05:49 Dose: 10 ml Documented by: A/P Narrative A/P Narrative: * Acute pancreatitis with SIRS - repeat CT today. White count starting to downtrend now at 20.8K/improved hemodynamics. Continue supportive care. * Abdominal pain management on Dilaudid REST ROOM MAID * Acute hypoxic respiratory failure secondary to severe pancreatitis. Improving now on room air * Colitis on CT, Normal ESr,CRP on presentation unlikely IBD. Repeat interval CT pending * Hypokalemia normalized with replacement * Low phosphorus continue replacement * Ileus- secondary to pancreatitis * Anxiety disorder continue clonazepam/sertraline * Prophylaxis Heparin Plan * Continue supportive treatment * Repeat abdominal CT * Replace electrolytes as indicated * Dilaudid REST ROOM MAID * Possible initiation of oral clears in 24-hour if clinically improved Time Spent With Patient Time: Total time spent is greater than 50% in coordination of care (as documented) at patient's floor/unit and/or counseling patient: QUALITY VTE Deep Vein Thrombosis/Pulmonary Embolism Present on Admission: No
[2021-03-29] MEDS: SENNOSIDES/DOCUSATE SODIUM 1 TAB TABLET PO SCH (20:01)
[2021-03-30] MEDS: 0.9 % SODIUM CHLORIDE 250 ML IV SCH ×2 (01:28→15:31)
[2021-03-30] MEDS: ONDANSETRON 4 MG/2 ML VIAL IV PRN (04:25)
[2021-03-30] MEDS: 0.9 % SODIUM CHLORIDE 1,000 ML IV SCH ×3 (05:00→21:02)
[2021-03-30] MEDS: 0.9 % SODIUM CHLORIDE 10 ML SYRINGE IV SCH ×4 (05:07→22:00)
--- NOTE | 2021-03-30 06:34 | Cat Scan Report ---
CLINICAL INFORMATION: Pancreatitis - follow-up COMPARISON: Abdomen and pelvic CT 03/26/2021 TECHNIQUE: Enteric contrast was utilized. 80 cc of Isovue-370 were injected intravenously, and 50 seconds later 2.5 mm helical slices were obtained from the lung apices through the subtrochanteric regions of the femurs. Following reconstruction, 2.5 mm sagittal, coronal and axial reformatted images were processed and reviewed at multiple windows and levels. 7 mm MIP reconstructions were obtained through the lungs to optimize nodule detection.The exam was performed using radiation dose optimization techniques including, but not limited to, automated exposure control, adjustment of the mA and/or kV according to patient size and use of iterative reconstruction technique. FINDINGS: Pulmonary parenchymal windows show moderate bilateral pleural effusions with subtotal segmental atelectasis in the medial posterior and lateral basilar segment of both lower lobes - more severe on the right side. Minimal scattered wispy groundglass airspace disease in the paramediastinal regions of both upper, lower and right middle lobe appreciated which is nonspecific. Few bullae seen within the lung apices. The mediastinal windows show the thoracic aorta and pulmonary arteries are well-opacified and normal in diameter. The heart is normal in size and configuration. No calcific plaque present in the coronary arteries. There is no mediastinal/hilar edema hemorrhage or adenopathy. The esophagus is grossly normal. The thyroid is unremarkable. Abdominal images show moderate fatty change within the liver. A 2.3 cm low-attenuation lesion in the geovanna hepatis should represent more focally concentrated fat. It is unchanged. The gallbladder and bile ducts are normal: CBD is 5 mm. Diffuse edema throughout the pancreas has increased from the comparison CT three days prior. There is also considerable increase in fluid in the peripancreatic fat planes, left anterior pararenal space and left lesser sac. Moderate ascites has increased particularly in the true and false pelvis. There is no evidence of pancreatic necrosis, splenic vein or portal vein thrombosis or other complication from pancreatitis. Both kidneys, adrenal glands, spleen and aorta, including aortic branches, are normal in size, configuration and attenuation without focal lesion. Pelvic images show hysterectomy changes urinary bladder is normal. Mild submucosal fatty infiltration around the colon as previously seen. Small bowel and stomach are grossly normal. Bone windows show no osseous abnormality. Bilateral breast implants are grossly normal. IMPRESSION: 1. Acute interstitial edematous pancreatitis: modest worsening since the examination three days prior. There is no evidence of necrosis, splenic/portal vein thrombosis, pseudocyst or other complication from pancreatitis, however. The volume of fluid in the retroperitoneal region and ascites in the pelvic region has increased moderately, however. 2. Submucosal fatty infiltration rather colon. While this may indicate chronic colitis, it also merely be a benign incidental finding. Consider colonoscopy for more specific evaluation 3. Moderate bilateral pleural effusions with subtotal segmental atelectasis in the medial posterior and lateral basilar segments of both lower lobes. New from CT three days ago 4. Moderate fatty change within the liver with a 2.3 cm region of focal fat concentration the geovanna hepatis. Please correlate with LFTs Interpreted and Authenticated by: Emil Sanchez 03/30/21
[2021-03-30 06:47] LABS: Basophils # (Auto) 0.04 K/mcL (0.00-0.20); Basophils % (Auto) 0.2 % (0.0-2.0); Eosinophils # (Auto) 0.14 K/mcL (0.00-0.70); Eosinophils % (Auto) 0.8 % (0.0-7.0); Hematocrit 37.8 % (36.0-48.0); Hemoglobin 12.6 g/dL (12.0-15.0); Lymphocytes # (Auto) 0.94 K/mcL (1.50-4.80); Lymphocytes % (Auto) 5.4 % (15.0-49.0); Mean Cell Volume 104.4 fL (80.0-100.0); Mean Corpuscular HGB Conc 33.3 g/dL (31.0-36.0); Mean Platelet Volume 9.9 fL (7.4-10.4); Monocytes # (Auto) 1.43 K/mcL (0.10-0.90); Monocytes % (Auto) 8.2 % (1.0-12.0); Neutrophils % (Auto) 85.4 % (38.0-78.0); Platelet Count 192 K/mcL (140-440); RBC 3.62 M/mcL (4.00-5.20); Red Cell Distribution Width 12.9 % (11.5-14.5); WBC 17.5 K/mcL (4.5-11.0)
[2021-03-30 07:12] LABS: ALT/SGPT 26 U/L (<40); AST/SGOT 47 U/L (<32); Albumin 2.2 gm/dL (3.2-5.2); Albumin/Globulin Ratio 0.8 (1.0-2.3); Alkaline Phosphatase 130 U/L (39-117); Bilirubin,Direct 1.1 mg/dL (<0.3); Bilirubin,Total 1.4 mg/dL (0.1-1.0); Blood Urea Nitrogen 3 mg/dL (6-20); Calcium 7.6 mg/dL (8.6-10.4); Carbon Dioxide 18 mmol/L (22-30); Chloride 102 mmol/L (96-108); Globulin 2.8 gm/dL (2.2-3.7); Glomerular Filtration Rate 148; Glucose 64 mg/dL (70-105); Lactate Dehydrogenase 293 U/L (135-225); Phosphorous 2.5 mg/dL (2.5-4.5); Triglycerides 145 mg/dL (<150); Uric Acid 3.6 mg/dL (2.5-8.0)
[2021-03-30] MEDS: DOCUSATE SODIUM 100 MG CAPSULE PO SCH ×2 (07:20→21:03)
[2021-03-30] MEDS: HEPARIN 5,000 UNIT/ML VIAL SQ SCH ×2 (08:12→21:03)
[2021-03-30] MEDS: POTASSIUM CHLORIDE 40 MEQ in DEXTROSE 5% IN WATER 500 ML IV PRN (08:12)
[2021-03-30] MEDS ORDERED: 0.9 % SODIUM CHLORIDE 1,000 ML IV SCH (10:15)
--- NOTE | 2021-03-30 10:23 | Internal Med Progress Note ---
SUBJECTIVE Subjective Patient information: Note initiated : 03/30/21 at 10:19 am Service Date, if different from initiated Date: [] Patient: Noemi Knight a 35 y/o F admitted on 03/26/21 for bilateral flank pain. Chief Complaint: [] Interval history: History of present illness: Ms. Knight is a 35 year old F with a history of alcoholism who presents to the ER with upper abdominal pain worsening over the last 5 days. H/o excessive ETOH. Associated nausea and vomiting. No fever, jaundice or chills. Symptoms progressed from initially 3 out of 10 pain to 10 out of 10 over the course of 5 days. Patient lives with her son and father. She was brought in by family to the ER for evaluation. Initial work-up in the ER was consistent with severe pancreatitis on abdominal imaging. Elevated lipase, white count, low [place] score on presentation. Hospital service was consulted At the time of my evaluation patient is very anxious and distressed rating pain 8 out of 10 despite Dilaudid. She denies prior similar episodes, No flank pain, bluish discoloration. Denies NSAIDS. 03/27- Patient clinically worse with increasing pain, tachypnea, tachycardia, abd distention, poorly controlled pain on [employer] dilaudid. Elevated CRP, distended and Tender abdomen, repeat CT abd in 24 hrs to r/o hemorrhage and necrosis. Ileus noted on exam, continue crystalloids. WBC worsening at 19.9, K 3.5, MAg 1.3, CRP 10. Transfer to PCU 03/28-patient showing gradual improvement. Elevated inflammatory markers. Continue NPO. Crystalloids. Renal function stable. White count 23. Persistent ileus. Third spacing fluids with edema noted. Very anxious. On [employer] Dilaudid. Continue existing treatment. 03/29-patient clinically improving. White count downtrending, CRP plateaued, improved abdominal pain but persistent nausea. Continuing NPO. Will attempt clear liquid diet in 24 hours if continues to improve clinically. Stabilizing hemodynamics. Urine output marginal. Excessive third spacing. 03/30-gradual clinical improvement noted. White count downtrending at 17.5. Started on clears. Abdominal pain improving. Currently on [employer] F[employer]. Repeat CT abdomen worsening pancreatic edema however no evidence of necrosis or hemorrhage. Ascites noted. Bilateral pleural effusion noted. Lower IV fluids to 50 cc an hour. Improving hemodynamics. On 2 L oxygen. Transition to medical floor Constitutional Vitals: Vital Signs Temp Pulse Resp BP Pulse Ox 96.6 F L 93 H 18 154/11 98 03/30/21 08:00 03/30/21 10:12 03/30/21 06:01 03/30/21 10:12 03/30/21 10:12 Period Temp Pulse Resp BP Sys/Ken Pulse Ox Last 24 Hr 96.6 F-98.7 F 77-113 16-20 148-170/11-108 89-100 Intake and Output 03/29/21 03/30/21 03/30/21 21:59 05:59 13:59 Intake Total 1350 1000 527 Output Total 550 700 350 Balance 800 300 177 Weight 99.201 kg Alert oriented Nonlabored breathing Anxious Minimal lymphedema On 2 L oxygen Intake & Output: Intake & Output 03/29/21 03/30/21 03/30/21 21:59 05:59 13:59 Intake Total 1350 1000 527 Output Total 550 700 350 Balance 800 300 177 Weight 99.201 kg Intake: IV 1000 1000 527 Sodium Chloride 0.9% 1,000 ml @ 1000 1000 527 100 mls/hr IV .Q10H [facility] Rx#: [id number] Oral 350 0 Output: Void Amount 550 600 350 Emesis 100 Other: Urine Appearance Clear Clear Clear Urine Color Dark Sabrina Light Sabrina [place] Urine Odor Normal Normal OBJ DATA Labs CBC & Chem 7: 03/30/21 05:36 03/30/21 05:36 Labs: Abnormal Lab Results 03/30/21 03/30/21 03/29/21 05:36 05:36 04:58 WBC 17.5 H 20.8 H RBC 3.62 L 3.68 L MCV 104.4 H 105.2 H MCH 34.8 H 35.3 H MPV 10.6 H Neut % (Auto) 85.4 H 85.0 H Lymph % (Auto) 5.4 L 7.2 L Lymph # (Auto) 0.94 L 1.49 L [place] # (Auto) 1.43 H 1.30 H Absolute Neutrophils 14.91 H 17.65 H Sodium 132 L Carbon Dioxide 18 L BUN 3 L Creatinine 0.3 L Glucose 64 L Calcium 7.6 L Phosphorus Total Bilirubin 1.4 H Direct Bilirubin 1.1 H GGT 161 H AST 47 H Alkaline Phosphatase 130 H Lactate Dehydrogenase 293 H C-Reactive Protein Total Protein 5.0 L Albumin 2.2 L Albumin/Globulin Ratio 0.8 L Triglycerides 03/29/21 03/29/21 03/28/21 04:57 04:57 05:05 WBC RBC MCV MCH MPV Neut % (Auto) Lymph % (Auto) Lymph # (Auto) [place] # (Auto) Absolute Neutrophils Sodium 127 L Carbon Dioxide 19 L BUN 4 L Creatinine 0.4 L Glucose Calcium 7.1 L Phosphorus 1.8 L Total Bilirubin Direct Bilirubin 0.7 H GGT 137 H AST 32 H Alkaline Phosphatase Lactate Dehydrogenase 267 H C-Reactive Protein 21.40 H 25.00 H Total Protein 4.7 L Albumin 2.2 L Albumin/Globulin Ratio 0.9 L Triglycerides 03/28/21 03/28/21 05:05 05:05 WBC 23.6 H RBC MCV 106.8 H MCH 35.2 H MPV Neut % (Auto) 86.1 H Lymph % (Auto) 7.9 L Lymph # (Auto) [place] # (Auto) 1.12 H Absolute Neutrophils 20.30 H Sodium Carbon Dioxide 19 L BUN 5 L Creatinine 0.4 L Glucose Calcium 6.9 L Phosphorus 1.4 L Total Bilirubin Direct Bilirubin 0.6 H GGT 169 H AST 34 H Alkaline Phosphatase Lactate Dehydrogenase 263 H C-Reactive Protein Total Protein 5.0 L Albumin 2.5 L Albumin/Globulin Ratio Triglycerides 154 H Meds: Medications Acetaminophen (Acetaminophen 325 Mg Tablet) 650 mg PO Q4-6HP PRN; Protocol PRN Reason: Per Pain Protocol/Fever > 101 Bisacodyl (Bisacodyl 10 Mg Supp.Rect) 10 mg [place] Q2-3DAYS PRN PRN Reason: Constipation Docusate Sodium (Docusate Sodium 100 Mg Capsule) 100 mg PO BID [facility] Last Admin: 03/30/21 07:20 Dose: Not Given Documented by: Guaifenesin/Codeine Phosphate (Guaifenesin/Codeine 10 Ml Udc) 10 ml PO Q4HP PRN PRN Reason: Cough Heparin Sodium (Porcine) (Heparin 5,000 Unit/Ml Vial) 5,000 unit SQ Q12 [facility] Last Admin: 03/30/21 08:12 Dose: 5,000 unit Documented by: Hydromorphone HCl (Hydromorphone 0.5 Mg/0.5 Ml Syringe) 0.25 - 0.5 mg IV Q15M PRN; Protocol PRN Reason: Per Pain Protocol Hydromorphone HCl (Hydromorphone [employer]er 30 Mg/30 Ml [employer]er.Vial) 30 mg IV UD PRN; Protocol PRN Reason: Pain Last Admin: 03/29/21 14:24 Dose: 30 mg Documented by: Sodium Chloride (Sodium Chloride 0.9%) 250 mls @ 20 mls/hr IV .[id number] [facility] Last Admin: 03/30/21 01:28 Dose: Not Given Documented by: Acetaminophen (Ofirmev) 650 mg in 65 mls @ 130 mls/hr IV Q6HP PRN; Protocol PRN Reason: Per Pain Protocol/Fever > 101 Magnesium Sulfate (Magnesium Sulfate) 2 gm in 50 mls @ 50 mls/hr IV UD PRN PRN Reason: MG = or < 1.7 Last Infusion: 03/28/21 10:33 Dose: Infused Documented by: Potassium Chloride 40 meq/ (Dextrose) 520 mls @ 130 mls/hr IV UD PRN PRN Reason: K+ = or < 3.5 Last Admin: 03/30/21 08:12 Dose: 130 mls/hr Documented by: Sodium Chloride (Sodium Chloride 0.9%) 1,000 mls @ 50 mls/hr IV .Q20H [facility] Last Admin: 03/30/21 10:17 Dose: Not Given Documented by: Lorazepam (Lorazepam 2 Mg/Ml Vial) 0.5 mg IV Q4-6HP PRN PRN Reason: ANXIETY/SEDATION Last Admin: 03/28/21 21:39 Dose: 0.5 mg Documented by: Melatonin (Melatonin 3 Mg Tablet) 3 mg PO HSP PRN PRN Reason: Insomnia Ondansetron HCl (Ondansetron 4 Mg Odt Tablet) 4 mg SL Q4-6HP PRN; Protocol PRN Reason: Nausea And Vomiting Ondansetron HCl (Ondansetron 4 Mg/2 Ml Vial) 4 mg IV Q4-6HP PRN; Protocol PRN Reason: Nausea And Vomiting Last Admin: 03/30/21 04:25 Dose: 4 mg Documented by: Polyethylene Glycol (Polyethylene Glycol 3350 17 Gm Packet) 17 gm PO DAILYP PRN PRN Reason: Constipation Promethazine HCl (Promethazine 25 Mg/Ml Vial) 6.25 mg IV Q4-6HP PRN; Protocol PRN Reason: Nausea And Vomiting Senna/Docusate Sodium (Sennosides/Docusate Sodium 1 Tab Tablet) 1 tab PO HS [facility] Last Admin: 03/29/21 20:01 Dose: Not Given Documented by: Sodium Chloride (0.9 % Sodium Chloride 10 Ml Syringe) 10 ml IV Q8 [facility] Last Admin: 03/30/21 05:07 Dose: 10 ml Documented by: A/P Narrative A/P Narrative: * Acute pancreatitis with SIRS - repeat CT today. White count starting to downtrend now at 20.8K/improved hemodynamics. Continue supportive care. * Abdominal pain management on Dilaudid [employer] * Acute hypoxic respiratory failure secondary to severe pancreatitis. On 2 L oxygen secondary to bilateral fluid * Mild colitis on CT, Normal ESr,CRP on presentation unlikely IBD. * Hypokalemia and low phosphorus on replacement * Ileus- secondary to pancreatitis, improving * Anxiety disorder continue clonazepam/sertraline * Prophylaxis Heparin Plan * Continue supportive treatment * Lower IV fluids * Start oral clears * Replace electrolytes as indicated * Wean [employer] and transition to IV opioid * PT Time Spent With Patient Time: Total time spent is greater than 50% in coordination of care (as sherly álvarez) at patient's floor/unit and/or counseling patient: QUALITY VTE Deep Vein Thrombosis/Pulmonary Embolism Present on Admission: No
[2021-03-30] MEDS ORDERED: IOPAMIDOL 100 ML BOTTLE IV ONE (12:54)
[2021-03-30] MEDS ORDERED: PROMETHAZINE 25 MG/ML VIAL IV PRN (12:54)
[2021-03-30] MEDS ORDERED: POTASSIUM CHLORIDE 40 MEQ in DEXTROSE 5% IN WATER 500 ML IV PRN (12:54)
[2021-03-30] MEDS ORDERED: HYDROmorphone PCA 30 MG/30 ML PCA.VIAL IV PRN (12:54)
[2021-03-30] MEDS ORDERED: HYDROmorphone 0.5 MG/0.5 ML SYRINGE IV PRN ×2 (12:54→14:15)
[2021-03-30] MEDS ORDERED: 0.9 % SODIUM CHLORIDE 250 ML IV SCH (12:54)
[2021-03-30] MEDS ORDERED: ACETAMINOPHEN 650 MG/65 ML BAG IV PRN (12:54)
[2021-03-30] MEDS ORDERED: POLYETHYLENE GLYCOL 3350 17 GM PACKET PO PRN (12:54)
[2021-03-30] MEDS ORDERED: ACETAMINOPHEN 325 MG TABLET PO PRN (12:54)
[2021-03-30] MEDS ORDERED: guaiFENesin/CODEINE 10 ML UDC PO PRN (12:54)
[2021-03-30] MEDS ORDERED: BISACODYL 10 MG SUPP.RECT PR PRN (12:54)
[2021-03-30] MEDS ORDERED: MAGNESIUM SULFATE 2 GM/50 ML BAG IV PRN (12:54)
[2021-03-30] MEDS ORDERED: ONDANSETRON 4 MG ODT TABLET SL PRN (12:54)
[2021-03-30] MEDS ORDERED: MELATONIN 3 MG TABLET PO PRN (21:00)
[2021-03-30] MEDS: SENNOSIDES/DOCUSATE SODIUM 1 TAB TABLET PO SCH (21:03)
[2021-03-31] MEDS: ONDANSETRON 4 MG/2 ML VIAL IV PRN (03:38)
[2021-03-31] MEDS: 0.9 % SODIUM CHLORIDE 10 ML SYRINGE IV SCH ×4 (06:51→23:47)
[2021-03-31 07:03] LABS: Basophils # (Auto) 0.04 K/mcL (0.00-0.20); Basophils % (Auto) 0.3 % (0.0-2.0); Eosinophils # (Auto) 0.24 K/mcL (0.00-0.70); Eosinophils % (Auto) 1.6 % (0.0-7.0); Hematocrit 36.5 % (36.0-48.0); Hemoglobin 12.4 g/dL (12.0-15.0); Lymphocytes # (Auto) 1.22 K/mcL (1.50-4.80); Mean Cell Volume 103.7 fL (80.0-100.0); Mean Platelet Volume 9.9 fL (7.4-10.4); Monocytes # (Auto) 1.49 K/mcL (0.10-0.90); Monocytes % (Auto) 9.8 % (1.0-12.0); Neutrophils % (Auto) 80.3 % (38.0-78.0); Platelet Count 215 K/mcL (140-440); RBC 3.52 M/mcL (4.00-5.20); WBC 15.3 K/mcL (4.5-11.0)
[2021-03-31 08:02] LABS: ALT/SGPT 40 U/L (<40); AST/SGOT 65 U/L (<32); Albumin 2.5 gm/dL (3.2-5.2); Alkaline Phosphatase 166 U/L (39-117); Bilirubin,Direct 0.8 mg/dL (<0.3); Blood Urea Nitrogen < 2 mg/dL (6-20); Calcium 7.9 mg/dL (8.6-10.4); Carbon Dioxide 21 mmol/L (22-30); Chloride 97 mmol/L (96-108); Globulin 2.6 gm/dL (2.2-3.7); Glomerular Filtration Rate 148; Glucose 96 mg/dL (70-105); Lactate Dehydrogenase 313 U/L (135-225); Phosphorous 2.1 mg/dL (2.5-4.5); Triglycerides 135 mg/dL (<150); Uric Acid 3.1 mg/dL (2.5-8.0)
[2021-03-31] MEDS ORDERED: FUROSEMIDE 20 MG/2 ML VIAL IV ONE (08:38)
[2021-03-31] MEDS: HEPARIN 5,000 UNIT/ML VIAL SQ SCH ×2 (08:44→20:26)
[2021-03-31] MEDS: DOCUSATE SODIUM 100 MG CAPSULE PO SCH ×2 (08:51→20:29)
[2021-03-31] MEDS: HYDROmorphone 0.5 MG/0.5 ML SYRINGE IV PRN ×6 (11:08→22:35)
[2021-03-31] MEDS: 0.9 % SODIUM CHLORIDE 1,000 ML IV SCH ×2 (11:42→15:34)
[2021-03-31] MEDS: LORazepam 2 MG/ML VIAL IV PRN (20:28)
[2021-03-31] MEDS: SENNOSIDES/DOCUSATE SODIUM 1 TAB TABLET PO SCH (20:29)
[2021-04-01] MEDS: ONDANSETRON 4 MG/2 ML VIAL IV PRN ×2 (00:33→21:39)
[2021-04-01] MEDS: HYDROmorphone 0.5 MG/0.5 ML SYRINGE IV PRN ×3 (00:33→05:22)
[2021-04-01] MEDS: 0.9 % SODIUM CHLORIDE 1,000 ML IV SCH (04:52)
[2021-04-01] MEDS: 0.9 % SODIUM CHLORIDE 10 ML SYRINGE IV SCH ×3 (04:53→20:19)
[2021-04-01] MEDS: HEPARIN 5,000 UNIT/ML VIAL SQ SCH ×2 (09:00→20:16)
[2021-04-01] MEDS: DOCUSATE SODIUM 100 MG CAPSULE PO SCH ×2 (09:00→20:20)
[2021-04-01] MEDS: HYDROcodone/APAP 10/325MG TABLET PO PRN ×3 (09:00→20:17)
--- NOTE | 2021-04-01 10:22 | Internal Med Progress Note ---
SUBJECTIVE Subjective Patient information: Note initiated : 03/31/21 at 8:19 am Service Date, if different from initiated Date: [] Patient: Noemi Knight a 35 y/o F admitted on 03/26/21 for bilateral flank pain. Chief Complaint: [] Interval history: History of present illness: Ms. Knight is a 35 year old F with a history of alcoholism who presents to the ER with upper abdominal pain worsening over the last 5 days. H/o excessive ETOH. Associated nausea and vomiting. No fever, jaundice or chills. Symptoms progressed from initially 3 out of 10 pain to 10 out of 10 over the course of 5 days. Patient lives with her son and father. She was brought in by family to the ER for evaluation. Initial work-up in the ER was consistent with severe pancreatitis on abdominal imaging. Elevated lipase, white count, low [place] score on presentation. Hospital service was consulted At the time of my evaluation patient is very anxious and distressed rating pain 8 out of 10 despite Dilaudid. She denies prior similar episodes, No flank pain, bluish discoloration. Denies NSAIDS. 03/27- Patient clinically worse with increasing pain, tachypnea, tachycardia, abd distention, poorly controlled pain on FIGURE MODEL dilaudid. Elevated CRP, distended and Tender abdomen, repeat CT abd in 24 hrs to r/o hemorrhage and necrosis. Ileus noted on exam, continue crystalloids. WBC worsening at 19.9, K 3.5, MAg 1.3, CRP 10. Transfer to PCU 03/28-patient showing gradual improvement. Elevated inflammatory markers. Continue NPO. Crystalloids. Renal function stable. White count 23. Persistent ileus. Third spacing fluids with edema noted. Very anxious. On FIGURE MODEL Dilaudid. Continue existing treatment. 03/29-patient clinically improving. White count downtrending, CRP plateaued, improved abdominal pain but persistent nausea. Continuing NPO. Will attempt clear liquid diet in 24 hours if continues to improve clinically. Stabilizing hemodynamics. Urine output marginal. Excessive third spacing. 03/30-gradual clinical improvement noted. White count downtrending at 17.5. Started on clears. Abdominal pain improving. Currently on FIGURE MODEL. Repeat CT abdomen worsening pancreatic edema however no evidence of necrosis or hemorrhage. Ascites noted. Bilateral pleural effusion noted. Lower IV fluids to 50 cc an hour. Improving hemodynamics. On 2 L oxygen. Transition to medical floor 03/31-clinical improvement noted. Advancing to full liquids. FIGURE MODEL Dilaudid discontinued. Transition to IV Dilaudid. Lower crystalloids to 50 cc an hour. Pain improved. Lymphedema improving. Improving renal function. White count down to 15.3, potassium 3.2 on replacement, phosphorus 2.1 on replacement, no overnight fever chills or concerns per staff. Constitutional Vitals: Vital Signs Temp Pulse Resp BP Pulse Ox 97.1 F 72 16 172/97 93 04/01/21 07:48 04/01/21 07:48 04/01/21 07:48 04/01/21 07:48 04/01/21 07:48 Period Temp Pulse Resp BP Sys/Ken Pulse Ox Last 24 Hr 97.1 F-98.9 F 72-91 16-20 148-172/82-99 92-95 Intake and Output 03/31/21 04/01/21 04/01/21 21:59 05:59 13:59 Intake Total 1287 200 0 Output Total 800 Balance 1287 -600 0 Weight 101.157 kg Alert and respond to commands Nonlabored breathing Minimal lymphedema Distended abdomen Intake & Output: Intake & Output 03/31/21 04/01/21 04/01/21 21:59 05:59 13:59 Intake Total 1287 200 0 Output Total 800 Balance 1287 -600 0 Weight 101.157 kg Intake: IV 927 Sodium Chloride 0.9% 1,000 ml @ 927 50 mls/hr IV .Q20H [facility] Rx#: [id number] Oral 360 200 0 Output: Void Amount 800 Other: Meal Dinner Percent of Meal Consumed 25% Feeding Ability Independent Urine Appearance Clear Urine Color Bright Yellow Urine Odor Normal OBJ DATA Labs CBC & Chem 7: 03/31/21 05:32 03/31/21 05:32 Labs: Abnormal Lab Results 03/31/21 03/31/21 03/30/21 05:32 05:32 05:36 WBC 15.3 H RBC 3.52 L MCV 103.7 H MCH 35.2 H Neut % (Auto) 80.3 H Lymph % (Auto) 8.0 L Lymph # (Auto) 1.22 L [place] # (Auto) 1.49 H Absolute Neutrophils 12.27 H Sodium 127 L 132 L Potassium 3.2 L Carbon Dioxide 21 L 18 L BUN < 2 L 3 L Creatinine 0.3 L 0.3 L Glucose 64 L Calcium 7.9 L 7.6 L Phosphorus 2.1 L Total Bilirubin 1.4 H Direct Bilirubin 0.8 H 1.1 H GGT 192 H 161 H AST 65 H 47 H ALT 40 H Alkaline Phosphatase 166 H 130 H Lactate Dehydrogenase 313 H 293 H Total Protein 5.1 L 5.0 L Albumin 2.5 L 2.2 L Albumin/Globulin Ratio 0.8 L 03/30/21 05:36 WBC 17.5 H RBC 3.62 L MCV 104.4 H MCH 34.8 H Neut % (Auto) 85.4 H Lymph % (Auto) 5.4 L Lymph # (Auto) 0.94 L [place] # (Auto) 1.43 H Absolute Neutrophils 14.91 H Sodium Potassium Carbon Dioxide BUN Creatinine Glucose Calcium Phosphorus Total Bilirubin Direct Bilirubin GGT AST ALT Alkaline Phosphatase Lactate Dehydrogenase Total Protein Albumin Albumin/Globulin Ratio Meds: Medications Acetaminophen (Acetaminophen 325 Mg Tablet) 650 mg PO Q4-6HP PRN; Protocol PRN Reason: Per Pain Protocol/Fever > 101 Hydrocodone Bitart/Acetaminophen (Hydrocodone/Apap 10/325mg Tablet) 1 - 2 tab PO Q4HP PRN; Protocol PRN Reason: Per Pain Protocol Bisacodyl (Bisacodyl 10 Mg Supp.Rect) 10 mg [place] Q2-3DAYS PRN PRN Reason: Constipation Docusate Sodium (Docusate Sodium 100 Mg Capsule) 100 mg PO BID [facility] Last Admin: 03/31/21 20:29 Dose: 100 mg Documented by: Guaifenesin/Codeine Phosphate (Guaifenesin/Codeine 10 Ml Udc) 10 ml PO Q4HP PRN PRN Reason: Cough Heparin Sodium (Porcine) (Heparin 5,000 Unit/Ml Vial) 5,000 unit SQ Q12 [facility] Last Admin: 03/31/21 20:26 Dose: 5,000 unit Documented by: Sodium Chloride (Sodium Chloride 0.9%) 1,000 mls @ 50 mls/hr IV .Q20H [facility] Last Admin: 04/01/21 04:52 Dose: Not Given Documented by: Acetaminophen (Ofirmev) 650 mg in 65 mls @ 130 mls/hr IV Q6HP PRN; Protocol PRN Reason: Per Pain Protocol/Fever > 101 Magnesium Sulfate (Magnesium Sulfate) 2 gm in 50 mls @ 50 mls/hr IV UD PRN PRN Reason: MG = or < 1.7 Potassium Chloride 40 meq/ (Dextrose) 520 mls @ 130 mls/hr IV UD PRN PRN Reason: K+ = or < 3.5 Lorazepam (Lorazepam 2 Mg/Ml Vial) 0.5 mg IV Q4-6HP PRN PRN Reason: ANXIETY/SEDATION Last Admin: 03/31/21 20:28 Dose: 0.5 mg Documented by: Melatonin (Melatonin 3 Mg Tablet) 3 mg PO HSP PRN PRN Reason: Insomnia Ondansetron HCl (Ondansetron 4 Mg Odt Tablet) 4 mg SL Q4-6HP PRN; Protocol PRN Reason: Nausea And Vomiting Ondansetron HCl (Ondansetron 4 Mg/2 Ml Vial) 4 mg IV Q4-6HP PRN; Protocol PRN Reason: Nausea And Vomiting Last Admin: 04/01/21 00:33 Dose: 4 mg Documented by: Polyethylene Glycol (Polyethylene Glycol 3350 17 Gm Packet) 17 gm PO DAILYP PRN PRN Reason: Constipation Promethazine HCl (Promethazine 25 Mg/Ml Vial) 6.25 mg IV Q4-6HP PRN; Protocol PRN Reason: Nausea And Vomiting Senna/Docusate Sodium (Sennosides/Docusate Sodium 1 Tab Tablet) 1 tab PO HS [facility] Last Admin: 03/31/21 20:29 Dose: 1 tab Documented by: Sodium Chloride (0.9 % Sodium Chloride 10 Ml Syringe) 10 ml IV Q8 [facility] Last Admin: 04/01/21 04:53 Dose: Not Given Documented by: A/P Narrative A/P Narrative: * Acute pancreatitis -interval CT worsening pancreatitis but no evidence of hemorrhage or neck sepsis. White count starting to downtrend now at 15 K. * Abdominal pain management-transition to IV Dilaudid. DC FIGURE MODEL * Acute hypoxic respiratory failure secondary to severe pancreatitis. On 2 L o xygen secondary to bilateral fluid * Mild colitis on CT, Normal ESr,CRP on presentation unlikely IBD. * Hypokalemia and low phosphorus on replacement * Ileus- secondary to pancreatitis, improving * Anxiety disorder continue clonazepam/sertraline * Prophylaxis Heparin Plan * Lower IV fluids * Advance to full liquids * DC FIGURE MODEL * Replace electrolytes as indicated Time Spent With Patient Time: Total time spent is greater than 50% in coordination of care (as documented) at patient's floor/unit and/or counseling patient: QUALITY VTE Deep Vein Thrombosis/Pulmonary Embolism Present on Admission: No
--- NOTE | 2021-04-01 10:25 | Internal Med Progress Note ---
SUBJECTIVE Subjective Patient information: Note initiated : 04/01/21 at 10:22 am Service Date, if different from initiated Date: [] Patient: Noemi Knight a 35 y/o F admitted on 03/26/21 for bilateral flank pain. Chief Complaint: [] Interval history: History of present illness: Ms. Knight is a 35 year old F with a history of alcoholism who presents to the ER with upper abdominal pain worsening over the last 5 days. H/o excessive ETOH. Associated nausea and vomiting. No fever, jaundice or chills. Symptoms progressed from initially 3 out of 10 pain to 10 out of 10 over the course of 5 days. Patient lives with her son and father. She was brought in by family to the ER for evaluation. Initial work-up in the ER was consistent with severe pancreatitis on abdominal imaging. Elevated lipase, white count, low [place] score on presentation. Hospital service was consulted At the time of my evaluation patient is very anxious and distressed rating pain 8 out of 10 despite Dilaudid. She denies prior similar episodes, No flank pain, bluish discoloration. Denies NSAIDS. 03/27- Patient clinically worse with increasing pain, tachypnea, tachycardia, abd distention, poorly controlled pain on [employer] SAL[employer] dilaudid. Elevated CRP, distended and Tender abdomen, repeat CT abd in 24 hrs to r/o hemorrhage and necrosis. Ileus noted on exam, continue crystalloids. WBC worsening at 19.9, K 3.5, MAg 1.3, CRP 10. Transfer to PCU 03/28-patient showing gradual improvement. Elevated inflammatory markers. Continue NPO. Crystalloids. Renal function stable. White count 23. Persistent ileus. Third spacing fluids with edema noted. Very anxious. On [employer] Dilaudid. Continue existing treatment. 03/29-patient clinically improving. White count downtrending, CRP plateaued, improved abdominal pain but persistent nausea. Continuing NPO. Will attempt clear liquid diet in 24 hours if continues to improve clinically. Stabilizing hemodynamics. Urine output marginal. Excessive third spacing. 03/30-gradual clinical improvement noted. White count downtrending at 17.5. Started on clears. Abdominal pain improving. Currently on [employer]. Repeat CT abdomen worsening pancreatic edema however no evidence of necrosis or hemorrhage. Ascites noted. Bilateral pleural effusion noted. Lower IV fluids to 50 cc an hour. Improving hemodynamics. On 2 L oxygen. Transition to medical floor 03/31-clinical improvement noted. Advancing to full liquids. [employer] Dilaudid discontinued. Transition to IV Dilaudid. Lower crystalloids to 50 cc an hour. Pain improved. Lymphedema improving. Improving renal function. White count down to 15.3, potassium 3.2 on replacement, phosphorus 2.1 on replacement, no overnight fever chills or concerns per staff. 04/01-patient transition to oral opioids. Continue full liquid diet. Overnight no fever chills however pain worsened with full liquid diet. Gradual transition as tolerated. Continue mobilization. DC IV fluids. Aggressively counseled for alcohol cessation. condominium association manager provide outpatient resources for alcohol cessation and rehab. Nursing staff expressed concerns about patient's IV over narcotic seeking behavior. Constitutional Vitals: Vital Signs Temp Pulse Resp BP Pulse Ox 97.1 F 72 16 172/97 93 04/01/21 07:48 04/01/21 07:48 04/01/21 07:48 04/01/21 07:48 04/01/21 07:48 Period Temp Pulse Resp BP Sys/Ken Pulse Ox Last 24 Hr 97.1 F-98.9 F 72-91 16-20 148-172/82-99 92-95 Intake and Output 03/31/21 04/01/21 04/01/21 21:59 05:59 13:59 Intake Total 1287 200 0 Output Total 800 Balance 1287 -600 0 Weight 101.157 kg alert oriented Nonlabored breathing Nondistended abdomen Lymphedema improving Intake & Output: Intake & Output 03/31/21 04/01/21 04/01/21 21:59 05:59 13:59 Intake Total 1287 200 0 Output Total 800 Balance 1287 -600 0 Weight 101.157 kg Intake: IV 927 Sodium Chloride 0.9% 1,000 ml @ 927 50 mls/hr IV .Q20H [facility] Rx#: [id number] Oral 360 200 0 Output: Void Amount 800 Other: Meal Dinner Percent of Meal Consumed 25% Feeding Ability Independent Urine Appearance Clear Urine Color Bright Yellow Urine Odor Normal OBJ DATA Labs CBC & Chem 7: 03/31/21 05:32 03/31/21 05:32 Labs: Abnormal Lab Results 03/31/21 03/31/21 03/30/21 05:32 05:32 05:36 WBC 15.3 H RBC 3.52 L MCV 103.7 H MCH 35.2 H Neut % (Auto) 80.3 H Lymph % (Auto) 8.0 L Lymph # (Auto) 1.22 L [place] # (Auto) 1.49 H Absolute Neutrophils 12.27 H Sodium 127 L 132 L Potassium 3.2 L Carbon Dioxide 21 L 18 L BUN < 2 L 3 L Creatinine 0.3 L 0.3 L Glucose 64 L Calcium 7.9 L 7.6 L Phosphorus 2.1 L Total Bilirubin 1.4 H Direct Bilirubin 0.8 H 1.1 H GGT 192 H 161 H AST 65 H 47 H ALT 40 H Alkaline Phosphatase 166 H 130 H Lactate Dehydrogenase 313 H 293 H Total Protein 5.1 L 5.0 L Albumin 2.5 L 2.2 L Albumin/Globulin Ratio 0.8 L 03/30/21 05:36 WBC 17.5 H RBC 3.62 L MCV 104.4 H MCH 34.8 H Neut % (Auto) 85.4 H Lymph % (Auto) 5.4 L Lymph # (Auto) 0.94 L [place] # (Auto) 1.43 H Absolute Neutrophils 14.91 H Sodium Potassium Carbon Dioxide BUN Creatinine Glucose Calcium Phosphorus Total Bilirubin Direct Bilirubin GGT AST ALT Alkaline Phosphatase Lactate Dehydrogenase Total Protein Albumin Albumin/Globulin Ratio Meds: Medications Acetaminophen (Acetaminophen 325 Mg Tablet) 650 mg PO Q4-6HP PRN; Protocol PRN Reason: Per Pain Protocol/Fever > 101 Hydrocodone Bitart/Acetaminophen (Hydrocodone/Apap 10/325mg Tablet) 1 - 2 tab PO Q4HP PRN; Protocol PRN Reason: Per Pain Protocol Bisacodyl (Bisacodyl 10 Mg Supp.Rect) 10 mg [place] Q2-3DAYS PRN PRN Reason: Constipation Docusate Sodium (Docusate Sodium 100 Mg Capsule) 100 mg PO BID [facility] Last Admin: 03/31/21 20:29 Dose: 100 mg Documented by: Guaifenesin/Codeine Phosphate (Guaifenesin/Codeine 10 Ml Udc) 10 ml PO Q4HP PRN PRN Reason: Cough Heparin Sodium (Porcine) (Heparin 5,000 Unit/Ml Vial) 5,000 unit SQ Q12 [facility] Last Admin: 03/31/21 20:26 Dose: 5,000 unit Documented by: Sodium Chloride (Sodium Chloride 0.9%) 1,000 mls @ 50 mls/hr IV .Q20H [facility] Last Admin: 04/01/21 04:52 Dose: Not Given Documented by: Acetaminophen (Ofirmev) 650 mg in 65 mls @ 130 mls/hr IV Q6HP PRN; Protocol PRN Reason: Per Pain Protocol/Fever > 101 Magnesium Sulfate (Magnesium Sulfate) 2 gm in 50 mls @ 50 mls/hr IV UD PRN PRN Reason: MG = or < 1.7 Potassium Chloride 40 meq/ (Dextrose) 520 mls @ 130 mls/hr IV UD PRN PRN Reason: K+ = or < 3.5 Lorazepam (Lorazepam 2 Mg/Ml Vial) 0.5 mg IV Q4-6HP PRN PRN Reason: ANXIETY/SEDATION Last Admin: 03/31/21 20:28 Dose: 0.5 mg Documented by: Melatonin (Melatonin 3 Mg Tablet) 3 mg PO HSP PRN PRN Reason: Insomnia Ondansetron HCl (Ondansetron 4 Mg Odt Tablet) 4 mg SL Q4-6HP PRN; Protocol PRN Reason: Nausea And Vomiting Ondansetron HCl (Ondansetron 4 Mg/2 Ml Vial) 4 mg IV Q4-6HP PRN; Protocol PRN Reason: Nausea And Vomiting Last Admin: 04/01/21 00:33 Dose: 4 mg Documented by: Polyethylene Glycol (Polyethylene Glycol 3350 17 Gm Packet) 17 gm PO DAILYP PRN PRN Reason: Constipation Promethazine HCl (Promethazine 25 Mg/Ml Vial) 6.25 mg IV Q4-6HP PRN; Protocol PRN Reason: Nausea And Vomiting Senna/Docusate Sodium (Sennosides/Docusate Sodium 1 Tab Tablet) 1 tab PO HS [facility] Last Admin: 03/31/21 20:29 Dose: 1 tab Documented by: Sodium Chloride (0.9 % Sodium Chloride 10 Ml Syringe) 10 ml IV Q8 [facility] Last Admin: 04/01/21 04:53 Dose: Not Given Documented by: A/P Narrative A/P Narrative: * Acute pancreatitis -gradual clinical improvement noted. Downtrending infla mmatory markers. * Abdominal pain management-DC IV narcotics, transition to oral opioid * Acute hypoxic respiratory failure secondary to severe pancreatitis. Clinically resolved now on room air. * Possible chronic colitis on CT. Schedule outpatient colonoscopy on discharge * Hypokalemia and low phosphorus continue replacement as indicated * Ileus- secondary to pancreatitis, improving * Anxiety disorder continue clonazepam/sertraline * Prophylaxis Heparin Plan * DC IV fluids * Continue full liquids and advance as tolerated * DC IV Dilaudid * Replace electrolytes as indicated * Discharge planning with outpatient alcohol rehab resources Time Spent With Patient Time: Total time spent is greater than 50% in coordination of care (as documented) at patient's floor/unit and/or counseling patient: QUALITY VTE Deep Vein Thrombosis/Pulmonary Embolism Present on Admission: No
--- NOTE | 2021-04-01 13:41 | Internal Med Progress Note ---
SUBJECTIVE Subjective Patient information: Note initiated : 04/01/21 at 1:37 pm Service Date, if different from initiated Date: [] Patient: Noemi Knight a 35 y/o F admitted on 03/26/21 for bilateral flank pain. Chief Complaint: [] Interval history: History of present illness: Ms. Knight is a 35 year old F with a history of alcoholism who presents to the ER with upper abdominal pain worsening over the last 5 days. H/o excessive ETOH. Associated nausea and vomiting. No fever, jaundice or chills. Symptoms progressed from initially 3 out of 10 pain to 10 out of 10 over the course of 5 days. Patient lives with her son and father. She was brought in by family to the ER for evaluation. Initial work-up in the ER was consistent with severe pancreatitis on abdominal imaging. Elevated lipase, white count, low [place] score on presentation. Hospital service was consulted At the time of my evaluation patient is very anxious and distressed rating pain 8 out of 10 despite Dilaudid. She denies prior similar episodes, No flank pain, bluish discoloration. Denies NSAIDS. 03/27- Patient clinically worse with increasing pain, tachypnea, tachycardia, abd distention, poorly controlled pain on TIRE RECAPPER dilaudid. Elevated CRP, distended and Tender abdomen, repeat CT abd in 24 hrs to r/o hemorrhage and necrosis. Ileus noted on exam, continue crystalloids. WBC worsening at 19.9, K 3.5, MAg 1.3, CRP 10. Transfer to PCU 03/28-patient showing gradual improvement. Elevated inflammatory markers. Continue NPO. Crystalloids. Renal function stable. White count 23. Persistent ileus. Third spacing fluids with edema noted. Very anxious. On TIRE RECAPPER Dilaudid. Continue existing treatment. 03/29-patient clinically improving. White count downtrending, CRP plateaued, improved abdominal pain but persistent nausea. Continuing NPO. Will attempt clear liquid diet in 24 hours if continues to improve clinically. Stabilizing hemodynamics. Urine output marginal. Excessive third spacing. 03/30-gradual clinical improvement noted. White count downtrending at 17.5. Started on clears. Abdominal pain improving. Currently on TIRE RECAPPER. Repeat CT abdomen worsening pancreatic edema however no evidence of necrosis or hemorrhage. Ascites noted. Bilateral pleural effusion noted. Lower IV fluids to 50 cc an hour. Improving hemodynamics. On 2 L oxygen. Transition to medical floor 03/31-clinical improvement noted. Advancing to full liquids. TIRE RECAPPER Dilaudid discontinued. Transition to IV Dilaudid. Lower crystalloids to 50 cc an hour. Pain improved. Lymphedema improving. Improving renal function. White count down to 15.3, potassium 3.2 on replacement, phosphorus 2.1 on replacement, no overnight fever chills or concerns per staff. 04/01-patient transition to oral opioids. Continue full liquid diet. Overnight no fever chills however pain worsened with full liquid diet. Gradual transition as tolerated. Continue mobilization. DC IV fluids. Aggressively counseled for alcohol cessation. ethanol operations manager provide outpatient resources for alcohol cessation and rehab. Nursing staff expressed concerns about patient's IV over narcotic seeking behavior. Constitutional Vitals: Vital Signs Temp Pulse Resp BP Pulse Ox 97 F 92 H 18 161/92 92 04/01/21 11:53 04/01/21 11:53 04/01/21 11:53 04/01/21 11:53 04/01/21 11:53 Period Temp Pulse Resp BP Sys/Ken Pulse Ox Last 24 Hr 97 F-98.9 F 72-92 16-20 148-172/82-99 92-95 Intake and Output 03/31/21 04/01/21 04/01/21 21:59 05:59 13:59 Intake Total 1287 200 360 Output Total 800 Balance 1287 -600 360 Weight 101.157 kg Intake & Output: Intake & Output 03/31/21 04/01/21 04/01/21 21:59 05:59 13:59 Intake Total 1287 200 360 Output Total 800 Balance 1287 -600 360 Weight 101.157 kg Intake: IV 927 Sodium Chloride 0.9% 1,000 ml @ 927 50 mls/hr IV .Q20H [facility] Rx#: [id number] Oral 360 200 360 Output: Void Amount 800 Other: Meal Dinner Breakfast Percent of Meal Consumed 25% 25% Feeding Ability Independent Independent Urine Appearance Clear Urine Color Bright Yellow Urine Odor Normal Exam: General: Alert, Awake, No acute Distress Eyes/N/T: EOMI, Head/Neck: neck supple, CV: RRR, No murmurs, Pulm: Clear b/l, no wheezing/rhonchi/rales Abd: soft, nontender, +BS x4 Ext: no clubbing/cyanosis, b/l LE edema Neuro: Alert, no focal deficits, moves all extremities, Skin: warm/dry OBJ DATA Labs CBC & Chem 7: 03/31/21 05:32 03/31/21 05:32 Labs: Abnormal Lab Results 03/31/21 03/31/21 03/30/21 05:32 05:32 05:36 WBC 15.3 H RBC 3.52 L MCV 103.7 H MCH 35.2 H Neut % (Auto) 80.3 H Lymph % (Auto) 8.0 L Lymph # (Auto) 1.22 L [place] # (Auto) 1.49 H Absolute Neutrophils 12.27 H Sodium 127 L 132 L Potassium 3.2 L Carbon Dioxide 21 L 18 L BUN < 2 L 3 L Creatinine 0.3 L 0.3 L Glucose 64 L Calcium 7.9 L 7.6 L Phosphorus 2.1 L Total Bilirubin 1.4 H Direct Bilirubin 0.8 H 1.1 H GGT 192 H 161 H AST 65 H 47 H ALT 40 H Alkaline Phosphatase 166 H 130 H Lactate Dehydrogenase 313 H 293 H Total Protein 5.1 L 5.0 L Albumin 2.5 L 2.2 L Albumin/Globulin Ratio 0.8 L 03/30/21 05:36 WBC 17.5 H RBC 3.62 L MCV 104.4 H MCH 34.8 H Neut % (Auto) 85.4 H Lymph % (Auto) 5.4 L Lymph # (Auto) 0.94 L [place] # (Auto) 1.43 H Absolute Neutrophils 14.91 H Sodium Potassium Carbon Dioxide BUN Creatinine Glucose Calcium Phosphorus Total Bilirubin Direct Bilirubin GGT AST ALT Alkaline Phosphatase Lactate Dehydrogenase Total Protein Albumin Albumin/Globulin Ratio Meds: Medications Acetaminophen (Acetaminophen 325 Mg Tablet) 650 mg PO Q4-6HP PRN; Protocol PRN Reason: Per Pain Protocol/Fever > 101 Hydrocodone Bitart/Acetaminophen (Hydrocodone/Apap 10/325mg Tablet) 1 - 2 tab PO Q4HP PRN; Protocol PRN Reason: Per Pain Protocol Last Admin: 04/01/21 13:15 Dose: 2 tab Documented by: Bisacodyl (Bisacodyl 10 Mg Supp.Rect) 10 mg [place] Q2-3DAYS PRN PRN Reason: Constipation Docusate Sodium (Docusate Sodium 100 Mg Capsule) 100 mg PO BID [facility] Last Admin: 04/01/21 09:00 Dose: 100 mg Documented by: Guaifenesin/Codeine Phosphate (Guaifenesin/Codeine 10 Ml Udc) 10 ml PO Q4HP PRN PRN Reason: Cough Heparin Sodium (Porcine) (Heparin 5,000 Unit/Ml Vial) 5,000 unit SQ Q12 [facility] Last Admin: 04/01/21 09:00 Dose: 5,000 unit Documented by: Sodium Chloride (Sodium Chloride 0.9%) 1,000 mls @ 50 mls/hr IV .Q20H [facility] Last Admin: 04/01/21 04:52 Dose: Not Given Documented by: Acetaminophen (Ofirmev) 650 mg in 65 mls @ 130 mls/hr IV Q6HP PRN; Protocol PRN Reason: Per Pain Protocol/Fever > 101 Magnesium Sulfate (Magnesium Sulfate) 2 gm in 50 mls @ 50 mls/hr IV UD PRN PRN Reason: MG = or < 1.7 Potassium Chloride 40 meq/ (Dextrose) 520 mls @ 130 mls/hr IV UD PRN PRN Reason: K+ = or < 3.5 Lorazepam (Lorazepam 2 Mg/Ml Vial) 0.5 mg IV Q4-6HP PRN PRN Reason: ANXIETY/SEDATION Last Admin: 03/31/21 20:28 Dose: 0.5 mg Documented by: Melatonin (Melatonin 3 Mg Tablet) 3 mg PO HSP PRN PRN Reason: Insomnia Ondansetron HCl (Ondansetron 4 Mg Odt Tablet) 4 mg SL Q4-6HP PRN; Protocol PRN Reason: Nausea And Vomiting Ondansetron HCl (Ondansetron 4 Mg/2 Ml Vial) 4 mg IV Q4-6HP PRN; Protocol PRN Reason: Nausea And Vomiting Last Admin: 04/01/21 00:33 Dose: 4 mg Documented by: Polyethylene Glycol (Polyethylene Glycol 3350 17 Gm Packet) 17 gm PO DAILYP PRN PRN Reason: Constipation Promethazine HCl (Promethazine 25 Mg/Ml Vial) 6.25 mg IV Q4-6HP PRN; Protocol PRN Reason: Nausea And Vomiting Senna/Docusate Sodium (Sennosides/Docusate Sodium 1 Tab Tablet) 1 tab PO HS [facility] Last Admin: 03/31/21 20:29 Dose: 1 tab Documented by: Sodium Chloride (0.9 % Sodium Chloride 10 Ml Syringe) 10 ml IV Q8 [facility] Last Admin: 04/01/21 13:11 Dose: Not Given Documented by: A/P Narrative A/P Narrative: A: *Acute etoh pancreatitis: -gradual clinical improvement noted. Downtrending inflammatory markers. *Abdominal pain: 2/2 above *Acute hypoxic respiratory failure: 2/2 severe pancreatitis. Clinically resolved now on room air. *Possible chronic colitis on CT: Schedule outpatient colonoscopy on discharge *Hypokalemia/Hypophosphorus: *Ileus:secondary to pancreatitis, improving *Anxiety disorder: continue clonazepam/sertraline Plan: -DC IV fluids -Continue full liquids and advance as tolerated -DC IV Dilaudid -Replace electrolytes as indicated -Discharge planning with outpatient alcohol rehab resources -f/u with GI for potential colonoscopy -Prophylaxis: Heparin Time Spent With Patient Time: Total time spent is greater than 50% in coordination of care (as documented) at patient's floor/unit and/or counseling patient: QUALITY VTE Deep Vein Thrombosis/Pulmonary Embolism Present on Admission: No
[2021-04-01] MEDS ORDERED: ALBUMIN HUMAN 12.5 GM/50 ML BAG IV ONE (13:44)
[2021-04-01] MEDS ORDERED: FUROSEMIDE 40 MG/4 ML VIAL IV ONE (13:44)
[2021-04-01 15:50] LABS: Blood Urea Nitrogen < 2 mg/dL (6-20); Calcium 8.5 mg/dL (8.6-10.4); Carbon Dioxide 26 mmol/L (22-30); Chloride 94 mmol/L (96-108); Glomerular Filtration Rate 148; Glucose 141 mg/dL (70-105)
[2021-04-01] MEDS ORDERED: POTASSIUM CHLORIDE 20 MEQ in DEXTROSE 5% IN WATER 250 ML IV ONE (17:00)
[2021-04-01] MEDS: SENNOSIDES/DOCUSATE SODIUM 1 TAB TABLET PO SCH (20:16)
[2021-04-01] MEDS: LORazepam 2 MG/ML VIAL IV PRN (21:39)
[2021-04-02] MEDS: HYDROcodone/APAP 10/325MG TABLET PO PRN ×3 (00:11→10:15)
[2021-04-02] MEDS: ONDANSETRON 4 MG/2 ML VIAL IV PRN (04:46)
[2021-04-02] MEDS: 0.9 % SODIUM CHLORIDE 10 ML SYRINGE IV SCH (04:49)
[2021-04-02 08:41] LABS: Basophils # (Auto) 0.07 K/mcL (0.00-0.20); Basophils % (Auto) 0.6 % (0.0-2.0); Eosinophils # (Auto) 0.39 K/mcL (0.00-0.70); Eosinophils % (Auto) 3.5 % (0.0-7.0); Hemoglobin 12.1 g/dL (12.0-15.0); Lymphocytes # (Auto) 1.79 K/mcL (1.50-4.80); Mean Corpuscular HGB Conc 35.6 g/dL (31.0-36.0); Mean Platelet Volume 10.1 fL (7.4-10.4); Monocytes % (Auto) 11.6 % (1.0-12.0); Neutrophils % (Auto) 68.3 % (38.0-78.0); Platelet Count 353 K/mcL (140-440); RBC 3.47 M/mcL (4.00-5.20); Red Cell Distribution Width 12.4 % (11.5-14.5); WBC 11.2 K/mcL (4.5-11.0)
[2021-04-02] MEDS ORDERED: clonazePAM 1 MG TABLET PO PRN (08:49)
--- NOTE | 2021-04-02 08:49 | Internal Med Progress Note ---
SUBJECTIVE Subjective Patient information: Note initiated : 04/02/21 at 8:44 am Service Date, if different from initiated Date: [] Patient: Noemi Knight a 35 y/o F admitted on 03/26/21 for bilateral flank pain. Chief Complaint: [] Interval history: History of present illness: Ms. Knight is a 35 year old F with a history of alcoholism who presents to the ER with upper abdominal pain worsening over the last 5 days. H/o excessive ETOH. Associated nausea and vomiting. No fever, jaundice or chills. Symptoms progressed from initially 3 out of 10 pain to 10 out of 10 over the course of 5 days. Patient lives with her son and father. She was brought in by family to the ER for evaluation. Initial work-up in the ER was consistent with severe pancreatitis on abdominal imaging. Elevated lipase, white count, low [place] score on presentation. Hospital service was consulted At the time of my evaluation patient is very anxious and distressed rating pain 8 out of 10 despite Dilaudid. She denies prior similar episodes, No flank pain, bluish discoloration. Denies NSAIDS. 03/27- Patient clinically worse with increasing pain, tachypnea, tachycardia, abd distention, poorly controlled pain on HARDWARE ASSEMBLER dilaudid. Elevated CRP, distended and Tender abdomen, repeat CT abd in 24 hrs to r/o hemorrhage and necrosis. Ileus noted on exam, continue crystalloids. WBC worsening at 19.9, K 3.5, MAg 1.3, CRP 10. Transfer to PCU 03/28-patient showing gradual improvement. Elevated inflammatory markers. Continue NPO. Crystalloids. Renal function stable. White count 23. Persistent ileus. Third spacing fluids with edema noted. Very anxious. On HARDWARE ASSEMBLER Dilaudid. Continue existing treatment. 03/29-patient clinically improving. White count downtrending, CRP plateaued, improved abdominal pain but persistent nausea. Continuing NPO. Will attempt clear liquid diet in 24 hours if continues to improve clinically. Stabilizing hemodynamics. Urine output marginal. Excessive third spacing. 03/30-gradual clinical improvement noted. White count downtrending at 17.5. Started on clears. Abdominal pain improving. Currently on HARDWARE ASSEMBLER. Repeat CT abdomen worsening pancreatic edema however no evidence of necrosis or hemorrhage. Ascites noted. Bilateral pleural effusion noted. Lower IV fluids to 50 cc an hour. Improving hemodynamics. On 2 L oxygen. Transition to medical floor 03/31-clinical improvement noted. Advancing to full liquids. HARDWARE ASSEMBLER Dilaudid discontinued. Transition to IV Dilaudid. Lower crystalloids to 50 cc an hour. Pain improved. Lymphedema improving. Improving renal function. White count down to 15.3, potassium 3.2 on replacement, phosphorus 2.1 on replacement, no overnight fever chills or concerns per staff. 04/01-patient transition to oral opioids. Continue full liquid diet. Overnight no fever chills however pain worsened with full liquid diet. Gradual transition as tolerated. Continue mobilization. DC IV fluids. Aggressively counseled for alcohol cessation. mental health case manager provide outpatient resources for alcohol cessation and rehab. Nursing staff expressed concerns about patient's IV over narcotic seeking behavior. 04/02 Patient continues to gradually improve. She is tolerating her diet. Patient desiring to leave today. Hyponatremia resolved. Mild hypokalemia will replete. Leukocytosis si gnificantly improved. Constitutional Vitals: Vital Signs Temp Pulse Resp BP Pulse Ox 96.9 F L 76 16 159/94 93 04/02/21 08:00 04/02/21 08:00 04/02/21 08:00 04/02/21 08:00 04/02/21 08:00 Period Temp Pulse Resp BP Sys/Ken Pulse Ox Last 24 Hr 96.7 F-98.8 F 75-105 16-18 138-161/86-94 90-98 Intake and Output 04/01/21 04/02/21 04/02/21 21:59 05:59 13:59 Intake Total 2510 300 640 Output Total 650 Balance 2510 -350 640 Weight 101.775 kg Intake & Output: Intake & Output 04/01/21 04/02/21 04/02/21 21:59 05:59 13:59 Intake Total 2510 300 640 Output Total 650 Balance 2510 -350 640 Weight 101.775 kg Intake: IV 1310 Sodium Chloride 0.9% 1,000 ml @ 1000 50 mls/hr IV .Q20H [facility] Rx#: [id number] Potassium Chloride 20 Meq In 260 Dextrose 5% in Water 250 ml @ 130 mls/hr IV ONCE ONE Rx#: [id number] Oral 1200 300 640 Output: Void Amount 650 Other: Urine Appearance Clear Urine Color Bright Yellow Exam: General: Alert, Awake, No acute Distress Eyes/N/T: EOMI, Head/Neck: neck supple, CV: RRR, No murmurs, Pulm: Clear b/l, no wheezing/rhonchi/rales Abd: soft, nontender, +BS x4 Ext: no clubbing/cyanosis, b/l LE edema Neuro: Alert, no focal deficits, moves all extremities, Skin: warm/dry OBJ DATA Labs CBC & Chem 7: 04/02/21 05:42 04/02/21 05:42 Labs: Abnormal Lab Results 04/02/21 04/01/21 03/31/21 05:42 13:58 05:32 WBC 11.2 H RBC 3.47 L Hct 34.0 L MCV MCH 34.9 H Neut % (Auto) Lymph % (Auto) Lymph # (Auto) [place] # (Auto) 1.30 H Absolute Neutrophils Sodium 129 L 127 L Potassium 3.0 L 3.2 L Chloride 94 L Carbon Dioxide 21 L BUN < 2 L < 2 L Creatinine 0.3 L 0.3 L Glucose 141 H Calcium 8.5 L 7.9 L Phosphorus 2.1 L Direct Bilirubin 0.8 H GGT 192 H AST 65 H ALT 40 H Alkaline Phosphatase 166 H Lactate Dehydrogenase 313 H Total Protein 5.1 L Albumin 2.5 L 03/31/21 05:32 WBC 15.3 H RBC 3.52 L Hct MCV 103.7 H MCH 35.2 H Neut % (Auto) 80.3 H Lymph % (Auto) 8.0 L Lymph # (Auto) 1.22 L [place] # (Auto) 1.49 H Absolute Neutrophils 12.27 H Sodium Potassium Chloride Carbon Dioxide BUN Creatinine Glucose Calcium Phosphorus Direct Bilirubin GGT AST ALT Alkaline Phosphatase Lactate Dehydrogenase Total Protein Albumin Meds: Medications Acetaminophen (Acetaminophen 325 Mg Tablet) 650 mg PO Q4-6HP PRN; Protocol PRN Reason: Per Pain Protocol/Fever > 101 Hydrocodone Bitart/Acetaminophen (Hydrocodone/Apap 10/325mg Tablet) 1 - 2 tab PO Q4HP PRN; Protocol PRN Reason: Per Pain Protocol Last Admin: 04/02/21 04:46 Dose: 2 tab Documented by: Bisacodyl (Bisacodyl 10 Mg Supp.Rect) 10 mg [place] Q2-3DAYS PRN PRN Reason: Constipation Docusate Sodium (Docusate Sodium 100 Mg Capsule) 100 mg PO BID [facility] Last Admin: 04/01/21 20:20 Dose: 100 mg Documented by: Guaifenesin/Codeine Phosphate (Guaifenesin/Codeine 10 Ml Udc) 10 ml PO Q4HP PRN PRN Reason: Cough Heparin Sodium (Porcine) (Heparin 5,000 Unit/Ml Vial) 5,000 unit SQ Q12 [facility] Last Admin: 04/01/21 20:16 Dose: 5,000 unit Documented by: Acetaminophen (Ofirmev) 650 mg in 65 mls @ 130 mls/hr IV Q6HP PRN; Protocol PRN Reason: Per Pain Protocol/Fever > 101 Magnesium Sulfate (Magnesium Sulfate) 2 gm in 50 mls @ 50 mls/hr IV UD PRN PRN Reason: MG = or < 1.7 Potassium Chloride 40 meq/ (Dextrose) 520 mls @ 130 mls/hr IV UD PRN PRN Reason: K+ = or < 3.5 Lorazepam (Lorazepam 2 Mg/Ml Vial) 0.5 mg IV Q4-6HP PRN PRN Reason: ANXIETY/SEDATION Last Admin: 04/01/21 21:39 Dose: 0.5 mg Documented by: Melatonin (Melatonin 3 Mg Tablet) 3 mg PO HSP PRN PRN Reason: Insomnia Ondansetron HCl (Ondansetron 4 Mg Odt Tablet) 4 mg SL Q4-6HP PRN; Protocol PRN Reason: Nausea And Vomiting Ondansetron HCl (Ondansetron 4 Mg/2 Ml Vial) 4 mg IV Q4-6HP PRN; Protocol PRN Reason: Nausea And Vomiting Last Admin: 04/02/21 04:46 Dose: 4 mg Documented by: Polyethylene Glycol (Polyethylene Glycol 3350 17 Gm Packet) 17 gm PO DAILYP PRN PRN Reason: Constipation Promethazine HCl (Promethazine 25 Mg/Ml Vial) 6.25 mg IV Q4-6HP PRN; Protocol PRN Reason: Nausea And Vomiting Senna/Docusate Sodium (Sennosides/Docusate Sodium 1 Tab Tablet) 1 tab PO HS [facility] Last Admin: 04/01/21 20:16 Dose: 1 tab Documented by: Sodium Chloride (0.9 % Sodium Chloride 10 Ml Syringe) 10 ml IV Q8 [facility] Last Admin: 04/02/21 04:49 Dose: 10 ml Documented by: A/P Narrative A/P Narrative: A: *Acute etoh pancreatitis: -gradual clinical improvement noted. Downtrending inflammatory markers. *Abdominal pain: 2/2 above *Acute hypoxic respiratory failure: 2/2 severe pancreatitis/atelectasis. Clinically resolved now on room air. *Possible chronic colitis on CT: Schedule outpatient colonoscopy on discharge *Hypokalemia/Hypophosphorus: *Ileus:secondary to pancreatitis, improving *Anxiety disorder: continue clonazepam/sertraline *HTN: Plan: -DC IV fluids, prn IV lasix -Continue full liquids and advance as tolerated -DC IV Dilaudid -Replace electrolytes as indicated -Discharge planning with outpatient alcohol rehab resources -f/u with GI for potential colonoscopy for submucosal fatty infiltration of colon -Prophylaxis: Heparin Time Spent With Patient Time: Total time spent is greater than 50% in coordination of care (as documented) at patient's floor/unit and/or counseling patient: QUALITY VTE Deep Vein Thrombosis/Pulmonary Embolism Present on Admission: No
[2021-04-02 09:00] LABS: ALT/SGPT 40 U/L (<40); AST/SGOT 48 U/L (<32); Albumin 2.8 gm/dL (3.2-5.2); Albumin/Globulin Ratio 0.9 (1.0-2.3); Alkaline Phosphatase 174 U/L (39-117); Bilirubin,Direct 0.3 mg/dL (<0.3); Bilirubin,Total 0.7 mg/dL (0.1-1.0); Blood Urea Nitrogen < 2 mg/dL (6-20); Calcium 8.7 mg/dL (8.6-10.4); Carbon Dioxide 27 mmol/L (22-30); Chloride 94 mmol/L (96-108); Glomerular Filtration Rate 148; Glucose 90 mg/dL (70-105); Lactate Dehydrogenase 375 U/L (135-225); Phosphorous 4.2 mg/dL (2.5-4.5); Triglycerides 151 mg/dL (<150); Uric Acid 2.5 mg/dL (2.5-8.0)
[2021-04-02] MEDS ORDERED: SERTRALINE 50 MG TABLET PO SCH (09:00)
[2021-04-02] MEDS ORDERED: FUROSEMIDE 40 MG/4 ML VIAL IV ONE (09:05)
[2021-04-02] MEDS ORDERED: ALBUMIN HUMAN 12.5 GM/50 ML BAG IV ONE (09:05)
[2021-04-02] MEDS ORDERED: POTASSIUM CHLORIDE 20 MEQ TABLET PO ONE (09:05)
[2021-04-02] MEDS: DOCUSATE SODIUM 100 MG CAPSULE PO SCH (09:07)
[2021-04-02] MEDS: HEPARIN 5,000 UNIT/ML VIAL SQ SCH (09:08)
--- NOTE | 2021-04-02 09:08 | Discharge Summary ---
Discharge Provider Provider Patient information: Note initiated : 04/02/21 at 9:07 am Service Date, if different from initiated Date: [] Patient: Noemi Knight 35 y/o F admitted on 03/26/21 for bilateral flank pain. Chief Complaint: [] Date of admission: 03/26/21 14:03 Discharge date: 04/02/21 Primary care physician: Snehal Parrish Consults: 03/26/21 Consult to Physician [CONS] Stat Comment: Consulting Provider: Adrian Jaramillo Reason For Exam: Physician to Consult Discharge Meds Discharge Medications Home Medications clonazepam 1 mg PO TIDP PRN 09/20/16 [History Confirmed 03/26/21 Last Taken Unknown] sertraline 150 mg PO DAILY 05/13/19 [History Confirmed 03/26/21 Last Taken 03/25/21 09:00] tramadol 50 mg PO Q6HP PRN 05/13/19 [History Confirmed 03/26/21 Last Taken Unknown] ondansetron 4 mg SL Q4-6HP PRN #10 tab 05/14/19 [Rx Confirmed 03/26/21 Last Taken Unknown] potassium chloride 20 meq PO BIDCC #6 tab 05/14/19 [Rx Confirmed 03/26/21 Last Taken 03/25/21 09:00] COURSE Hospital Course Hospital course: History of present illness: Ms. Knight is a 35 year old F with a history of alcoholism who presents to the ER with upper abdominal pain worsening over the last 5 days. H/o excessive ETOH. Associated nausea and vomiting. No fever, jaundice or chills. Symptoms progressed from initially 3 out of 10 pain to 10 out of 10 over the course of 5 days. Patient lives with her son and father. She was brought in by family to the ER for evaluation. Initial work-up in the ER was consistent with severe pancreatitis on abdominal imaging. Elevated lipase, white count, low Radha/Crandall score on presentation. Hospital service was consulted At the time of my evaluation patient is very anxious and distressed rating pain 8 out of 10 despite Dilaudid. She denies prior similar episodes, No flank pain, bluish discoloration. Denies NSAIDS. 03/27- Patient clinically worse with increasing pain, tachypnea, tachycardia, abd distention, poorly controlled pain on [employer] dilaudid. Elevated CRP, distended and Tender abdomen, repeat CT abd in 24 hrs to r/o hemorrhage and necrosis. Ileus noted on exam, continue crystalloids. WBC worsening at 19.9, K 3.5, MAg 1.3, CRP 10. Transfer to PCU 03/28-patient showing gradual improvement. Elevated inflammatory markers. Continue NPO. Crystalloids. Renal function stable. White count 23. Persistent ileus. Third spacing fluids with edema noted. Very anxious. On [employer] Dilaudid. Continue existing treatment. 03/29-patient clinically improving. White count downtrending, CRP plateaued, improved abdominal pain but persistent nausea. Continuing NPO. Will attempt clear liquid diet in 24 hours if continues to improve clinically. Stabilizing hemodynamics. Urine output marginal. Excessive third spacing. 03/30-gradual clinical improvement noted. White count downtrending at 17.5. Started on clears. Abdominal pain improving. Currently on [employer]. Repeat CT abdomen worsening pancreatic edema however no evidence of necrosis or hemorrhage. Ascites noted. Bilateral pleural effusion noted. Lower IV fluids to 50 cc an hour. Improving hemodynamics. On 2 L oxygen. Transition to medical floor 03/31-clinical improvement noted. Advancing to full liquids. [employer] Dilaudid discontinued. Transition to IV Dilaudid. Lower crystalloids to 50 cc an hour. Pain improved. Lymphedema improving. Improving renal function. White count down to 15.3, potassium 3.2 on replacement, phosphorus 2.1 on replacement, no overnight fever chills or concerns per staff. 04/01-patient transition to oral opioids. Continue full liquid diet. Overnight no fever chills however pain worsened with full liquid diet. Gradual transition as tolerated. Continue mobilization. DC IV fluids. Aggressively counseled for alcohol cessation. manager purchasing provide outpatient resources for alcohol cessation and rehab. Nursing staff expressed concerns about patient's IV over narcotic seeking behavior. 04/02 Patient continues to gradually improve. She is tolerating her diet. Patient desiring to leave today. Hyponatremia resolved. Mild hypokalemia will replete. Leukocytosis significan tly improved. A: *Acute etoh pancreatitis: -gradual clinical improvement noted. Downtrending inflammatory markers. *Abdominal pain: 2/2 above *Acute hypoxic respiratory failure: 2/2 severe pancreatitis/atelectasis. Clinically resolved now on room air. *Possible chronic colitis on CT: Schedule outpatient colonoscopy on discharge *Hypokalemia/Hypophosphorus: *Ileus:secondary to pancreatitis, improving *Anxiety disorder: continue clonazepam/sertraline *HTN: Plan: Discharge diagnosis: Alcoholic pancreatitis atelectasis chronic colitis Secondary discharge diagnosis: Anxiety hypertension Time Spent with Patient Time attestation: Total time spent providing and/or coordinating discharge services: EXAM Constitutional Vitals: Temp Pulse Resp BP Pulse Ox 96.9 F L 76 16 159/94 93 04/02/21 08:00 04/02/21 08:00 04/02/21 08:00 04/02/21 08:00 04/02/21 08:00 Discharge Data Data Completed and Pending Labs on day of discharge: Labs from last 24 hours 04/02/21 04/02/21 04/01/21 05:42 05:42 13:58 WBC 11.2 H RBC 3.47 L Hgb 12.1 Hct 34.0 L MCV 98.0 MCH 34.9 H MCHC 35.6 RDW 12.4 Plt Count 353 MPV 10.1 Neut % (Auto) 68.3 Lymph % (Auto) 16.0 [place] % (Auto) 11.6 Eos % (Auto) 3.5 Baso % (Auto) 0.6 Lymph # (Auto) 1.79 [place] # (Auto) 1.30 H Eos # (Auto) 0.39 Baso # (Auto) 0.07 Absolute Neutrophils 7.62 Sodium 134 129 L Potassium 3.0 L 3.0 L Chloride 94 L 94 L Carbon Dioxide 27 26 Anion Gap 13.0 9.0 BUN < 2 L < 2 L Creatinine 0.3 L 0.3 L GFR Calculation 148 148 Glucose 90 141 H Uric Acid 2.5 Calcium 8.7 8.5 L Phosphorus 4.2 Magnesium 1.9 Total Bilirubin 0.7 Direct Bilirubin 0.3 H GGT 183 H AST 48 H ALT 40 H Alkaline Phosphatase 174 H Lactate Dehydrogenase 375 H Total Protein 5.8 L Albumin 2.8 L Globulin 3.0 Albumin/Globulin Ratio 0.9 L Triglycerides 151 H Discharge Plan Patient/Caregiver Discharge Instructions Activity: increase activity as tolerated Diet: Low Fat and Full Liquid Activity Restrictions/Additional Instructions: Advance diet as tolerated to low-fat. Referral to see gastroenterology 1-2 weeks for potential colonoscopy due to CT abdomen pelvis results Prescriptions: Continued clonazepam 1 MG tablet 1 mg PO TIDP PRN (Reason: Anxiety) RF: 0 tramadol 50 MG tablet 50 mg PO Q6HP PRN (Reason: Pain) RF: 0 sertraline 50 MG tablet 150 mg PO DAILY RF: 0 potassium chloride 20 MEQ tablet 20 meq PO BIDCC Qty: 6 RF: 0 ondansetron 4 MG tablet 4 mg SL Q4-6HP PRN (Reason: Nausea) Qty: 10 RF: 0 Follow Up Plan Follow up with: Kateryna Sy DO [Physician] - (alcohol use) Snehal Parrish ARNP [Primary Care Provider] - Patient Disposition: Home, Self-Care Prognosis: Fair Overall status at discharge: patient is progressing back to baseline Discharge Orders: Discharge Order (Routine); Ordered 04/02/21 Ordered By: Bert Tan [facility] Deep Vein Thrombosis/Pulmonary Embolism Present on Admission: No
== END 2021-04-02 11:23 | disposition home or self-care (01) | DRG 438 ==
LOC: ED 08:38 → MEDSUR 14:03 → ICU 03-27 07:45 → MEDSUR 03-30 19:56
PROVIDERS: ADMIT Internal Medicine; ATTEND Internal Medicine